=== PATIENT | female | born 1990 | race African-American/Black ===

== ENCOUNTER 2023-07-14 12:36 | Emergency (ER) | payer MEDICAID ==
[~2023-07-14] VITALS: Ht 172.7 cm; Wt 94.0 kg
[2023-07-14 13:13] LABS: Basophils # (auto) 0 10 ^3/uL (0-0.2); Basophils % (auto) 1.1 % (0.0-2.0); Eosinophils # (auto) 0.1 10 ^3/uL (0-0.8); Eosinophils % (auto) 1.7 % (0.0-7.0); Hemoglobin 12.7 g/dL (12.2-16.2); Lymphocytes # (auto) 1.9 10 ^3/uL (0.4-5.4); Lymphocytes % (auto) 49.4 % (10.0-50.0); Mean Corpuscular Hemoglobin 27.7 pg (28.0-32.0); Mean Corpuscular Hgb Conc. 32.5 g/dL (32.0-36.0); Mean Corpuscular Volume 85.3 fL (80.0-100.0); Monocytes # (auto) 0.2 10 ^3/uL (0-1.3); Monocytes % (auto) 5.6 % (0.0-12.0); Neutrophils # (auto) 1.6 10 ^3/uL (1.6-8.6); Neutrophils % (auto) 42.2 % (37.0-80.0); Nucleated Red Blood Cells % 0.1 %; Red Blood Cells 4.58 10^6/uL (4.0-5.20); Red Cell Distribution Width 13.5 % (11.8-14.3); White Blood Cell 3.8 10^3/uL (4.4-10.8)
[2023-07-14 13:31] LABS: INR 1.02 (0.9-1.15); Partial Thromboplastin Time 28.8 SEC (24.5-34.5); Prothrombin Time 10.7 sec (9.3-11.8)
[2023-07-14] MEDS ORDERED: NAPR-1334 PO (13:34)
[2023-07-14] MEDS ORDERED: AML5T PO (13:34)
[2023-07-14 13:41] LABS: Alanine Aminotransferase 12 U/L (7-40); Albumin 4.2 g/dL (3.2-4.8); Alkaline Phosphatase 82 U/L (46-116); Anion Gap 6 (5-15); Aspartate Aminotransferase < 8 U/L (13-40); BUN/Creatinine Ratio 11.4 (10.0-20.0); Blood Urea Nitrogen 10 mg/dL (9-23); Calcium 8.9 mg/dL (8.7-10.4); Carbon Dioxide 26 mmol/L (20-30); Chloride 101 mmol/L (98-107); Glucose 398 mg/dL (74-106); Sodium 133 mmol/L (136-145)
[2023-07-14 13:42] LABS: Bilirubin, Total 0.5 mg/dL (0.2-1.0)
[2023-07-14] MEDS ORDERED: GLYB2.5T9 PO (16:19)
[2023-07-14] MEDS ORDERED: BLOO1KIT60 XX (16:22)
[2023-07-14 16:30] VITALS: BP 120/76; PULSE 74; RESP 18; TEMP 98.4; O2SAT 97
[2023-07-14] MEDS ORDERED: SODIUM CHLORIDE 0.9% 1,000 ML IV ONE (16:45)
== END 2023-07-14 17:15 | disposition home or self-care (01) ==
LOC: ER 12:36
DX: R07.9 Chest pain, unspecified (principal); R10.2 Pelvic and perineal pain; I10 Essential (primary) hypertension; E11.65 Type 2 diabetes mellitus with hyperglycemia; Z91.041 Radiographic dye allergy status
CPT/HCPCS: 36415; 80053; 82962; 84484; 84702; 85025; 85379; 85610; 85730; 93005; 99284; J7030

== ENCOUNTER 2024-06-10 01:37 | Emergency (ER) | payer OTHER, MEDICAID ==
[~2024-06-10] VITALS: Ht 175.3 cm; Wt 86.0 kg
[~2024-06-10 01:37] MED LIST: AML5T PO; BLOO1KIT60 XX; GLYB2.5T9 PO; NAPR-1335 PO
--- NOTE | 2024-06-10 02:02 | ED.PDOC ---
History of present illness HPI Comments 33-year-old female presents with a chief complaint of lightheadedness and hyperglycemia x onset today. Patient states that she has been compliant with her diabetes medications and checked her blood sugar which read HIGH. Patient endorses that she has been taking Prednisone since 05/24/2024 when she was diagn osed with Influenza A. Patient denies any other symptoms at this time. Chief Complaint: Hyperglycemia Time Seen by MD: 01:54 History of present illness: Medications, Allergies Allergies: Coded Allergies: Iodine (Verified Allergy, Unknown, 07/14/23) Home Meds Active Scripts Blood Glucose Monitoring Suppl (D-Care Glucometer Kit/Glu W/Device) 1 Kit Kit, KIT XX BID, #1 Prov:JONNA DUTTA MD 07/14/23 Glyburide (Micronase) 2.5 Mg Tb, 1 TAB PO BID for 90 Days, #180 TAB 1 Refill Prov:JONNA DUTTA MD 07/14/23 Naproxen Sodium (Naproxen) 220 Mg Tab, 220 MG PO BID for 7 Days, #14 TAB Prov:JONNA DUTTA MD 07/14/23 Amlodipine Besylate (NORVASC TABLET) 5 Mg Tb, 0.5 TAB PO DAILY for 60 Days, #30 TAB 5 Refills Prov:JONNA DUTTA MD 07/14/23 Information Source: Patient Mode of Arrival: Ambulatory Timing: Hours Duration: Since onset Prehospital treatment: None Rosine: Shaky Symptoms: Shaky History of: Diabetes Associated signs and symptoms: Other (LIGHTHEADEDNESS) Past Medical History PAST MEDICAL HISTORY: DM Surgical History: Denies all surgeries 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 Family History Family History: Unknown Social History Smoker: Non-Smoker Alcohol: Denies ETOH Use Drugs: Denies Drug Use Lives In: Home Constitutional: denies: chills, diaphoresis, fatigue, fever, malaise, sweats, weakness, others EENTM: denies: blurred vision, double vision, ear bleeding, ear discharge, ear drainage, ear pain, ear ringing, eye pain, eye redness, hearing loss, mouth pain, mouth swelling, nasal discharge, nose bleeding, nose congestion, nose pain, photophobia, tearing, throat pain, throat swelling, voice changes, others Respiratory: denies: cough, hemoptysis, orthopnea, SOB at rest, shortness of breath, SOB with excertion, stridor, wheezing, others Cardiovascular: reports: lightheadedness; denies: chest pain, dizzy spells, diaphoresis, Dyspnea on exertion, edema, irregular heart beat, left arm pain, palpitations, PND, syncope, others Gastrointestinal: denies: abdomen distended, abdominal pain, blood streaked bowels, constipated, diarrhea, dysphagia, difficulty swallowing, hematemesis, melena, nausea, poor appetite, poor fluid intake, rectal bleeding, rectal pain, vomiting, others Genitourinary: denies: abnormal vagina bleeding, burning, dyspareunia, dysuria, flank pain, frequency, hematuria, incontinence, pain, , vagina discharge, urgency, others Neurological: denies: dizziness, fainting, headache, left sided numbness, left sided weakness, numbness, paresthesia, pre-existing deficit, right sided numbness, right sided weakness, seizure, speech problems, tingling, tremors, weakness, others Musculoskeletal: denies: back pain, gout, joint pain, joint swelling, muscle pain, muscle stiffness, neck pain, others Integumetry: denies: bruises, change in color, change in hair/nails, dryness, laceration, lesions, lumps, rash, wounds, others Allergic/Immunocompromised: denies: Difficulty Healing, Frequent Infections, Hives, Itching, others Hematologic/Lymphatic: denies: anemia, blood clots, easy bleeding, easy bruising, swollen glands, others Endocrine: reports: others (HYPERGLYCEMIA); denies: excessive hunger, excessive sweating, excessive thirst, excessive urination, flushing, intolerance to cold, intolerance to heat, unexplained weight gain, unexplained weight loss Psychiatric: denies: anxiety, bipolar disorder, depression, hopeless, panic disorder, schizophrenia, sleepless, suicidal, others All Other Systems: Reviewed and Negative Physical Exam General Appearance: Mild Distress, Normal HEENT: Normal ENT Inspection, Pharynx Normal, TMs Normal Neck: Full Range of Motion, Non-Tender, Normal, Normal Inspection Respiratory: Chest Non-Tender, Lungs Clear, No Accessory Muscle Use, No Respiratory Distress, Normal Breath Sounds Cardiovascular: No Edema, No JVD, No Murmur, No Gallop, Normal Peripheral Pulses, Regular Rate/Rhythm Breast Exam: Deferred Gastrointestinal: No Organomegaly, Non Tender, No Pulsatile Mass, Normal Bowel Sounds, Soft Genitalia: Deferred Pelvic: Deferred Rectal: Deferred Extremities: No calf tenderness, Normal capillary refill, Normal inspection, Normal range of motion, Non-tender, No pedal edema Musculoskeletal : Apperance: Normal Neurologic: Alert, logging specialist II-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 Was a procedure done?: No Differential Diagnosis (DM) Differential Diagnosis: Dehydration, Diabetic Coma, DKA, Electrolyte Abnormality, Hyperglycemia, Hyperosmolar State, Other X-Ray, Labs, Meds, VS Vital Signs Date Time Temp Pulse Resp B/P (MAP) Pulse Ox O2 Delivery O2 Flow Rate FiO2 06/10/24 06:11 90 16 99 Room Air* 0 21 06/10/24 06:09 97.8 90 16 134/93 (107) 99 97.8 06/10/24 01:48 97.8 108 16 122/90 (101) 97 Lab Test 06/10/24 05:32 06/10/24 04:26 06/10/24 03:40 06/10/24 01:47 Range/Units POC Glucose 460 *H 483 *H 445 *H 70-106 mg/dl Blood Gas Specimen Type Venous Blood Gas Sample Site Vbg - n/a Blood Gas Patient Temperature 37.0 Arterial Blood Date Drawn [id number] Dru Test N/a Venous Blood pH 7.397 7.320-7.430 Venous Blood pCO2 at Patient Temp 40.9 38.0-54.0 mmHg Venous Blood pO2 at Patient Temp < 36.5 23.0-48.0 mmHg Venous Blood HCO3 24.6 22.0-29.0 mmol/L Venous Bld O2 Saturation (Measured) 43.8 L 60.0-85.0 % Venous Blood Base Excess -0.2 -2.0-3.0 mmol/L Venous Blood Total Hemoglobin 13.5 12.0-16.0 g/dL Venous Blood Oxyhemoglobin 43.1 0.0-79.0 % Venous Blood Carboxyhemoglobin 1.1 0.5-1.5 % Venous Blood Methemoglobin 0.4 0.0-1.5 % Blood Gas Modality Room air FiO2 % 21.0 Blood Gas Critical Value Read Back Yes Blood Gas Notified Whom steven Randolph Blood Gas Notified Time [id number] Blood Gas Notified By ramesh Naylor pickens Test 06/10/24 01:45 Range/Units POC Glucose 484 *H 70-106 mg/dl Current Medications Medications (Trade) Dose Ordered Sig/Radha Route Start Time Stop Time Status Last Admin Sodium Chloride 1,000 ml @ 1,000 mls/hr Q1H ONCE IV 06/10/24 02:00 06/10/24 02:59 DC 06/10/24 04:21 Insulin Human Regular (InsuLIN R) 6 units ONCE ONCE IV 06/10/24 02:00 06/10/24 02:02 DC 06/10/24 04:28 Time of 1ST Reevaluation: 02:24 Reevaluation 1ST: Unchanged Time of 2ND Reevaluation: 03:30 Reevaluation 2ND: Improved Patient Education/Counseling: Diagnosis, Treatment, Prognosis Family Education/Counseling: No Family Present Departure 1 Departure Time of Disposition: 04:00 Impression: Primary Impression: Hyperglycemia due to diabetes mellitus Additional Impression: Hypertension Disposition: 01 HOME / SELF CARE / HOMELESS Condition: Stable Discharged With: Self Critical Care Note Critical Care Time?: No Stability Stability form required: No I personally scribed for CARMEN DENNIS MD ([email or web address]) on 06/10/24 at 02:02. Electronically submitted by Bryant Nelson ([email or web address]). CARMEN DENNIS MD Jun 10, 2024 02:02
[2024-06-10] MEDS: SODIUM CHLORIDE 0.9% 1,000 ML IV ONE (04:21)
[2024-06-10] MEDS: InsuLIN REG 1unit/0.01ml Soln (100units/ml) IV ONE (04:28)
[2024-06-10 06:09] VITALS: BP 134/93; TEMP 97.8
[2024-06-10 06:11] VITALS: PULSE 90; RESP 16; O2SAT 99
== END 2024-06-10 06:09 | disposition home or self-care (01) ==
LOC: ER 01:37
DX: E11.65 Type 2 diabetes mellitus with hyperglycemia (principal); I10 Essential (primary) hypertension; Z79.84 Long term (current) use of oral hypoglycemic drugs; Z79.899 Other long term (current) drug therapy; Z91.041 Radiographic dye allergy status; Z88.8 Allergy status to other drugs, medicaments and biological substances
CPT/HCPCS: 36600; 82805; 82962; 96361; 96374; 99283; J1815; J7030

== ENCOUNTER 2024-06-15 22:01 | Emergency (ER) | payer BC, OTHER, MEDICAID ==
[~2024-06-15] VITALS: Ht 175.3 cm; Wt 89.0 kg
[2024-06-15 22:17] VITALS: BP 148/100; PULSE 85; RESP 17; TEMP 97.9; O2SAT 99
--- NOTE | 2024-06-15 23:00 | ED.PDOC ---
Foreign Body HPI Comments THIS IS A 34-YEAR-OLD FEMALE PATIENT PRESENTS TO THE ED WITH POSSIBLE FOREIGN BODY STUCK IN HER THROAT. PATIENT STATES ABOUT AN HOUR PRIOR TO ARRIVAL SHE WAS EATING A CORN DOG FELT A PIECE GET STUCK IN HER THROAT. IT IS PRESSURE IN HER THROAT DENIES DIFFICULTY BREATHING, SHORTNESS OF BREATH, VOMITING. FULL SENTENCES ABLE TO SWALLOW Chief Complaint: Foreign Body Time Seen by MD: 22:07 History of Present Illness: Nurses Notes, Medications, Allergies Allergies: Coded Allergies: Iodine (Verified Allergy, Unknown, 07/14/23) Home Meds Active Scripts Blood Glucose Monitoring Suppl (D-Care Glucometer Kit/Glu W/Device) 1 Kit Kit, KIT XX BID, #1 Prov:JONNA DUTTA MD 07/14/23 Glyburide (Micronase) 2.5 Mg Tb, 1 TAB PO BID for 90 Days, #180 TAB 1 Refill Prov:JONNA DUTTA MD 07/14/23 Naproxen Sodium (Naproxen) 220 Mg Tab, 220 MG PO BID for 7 Days, #14 TAB Prov:JONNA DUTTA MD 07/14/23 Amlodipine Besylate (NORVASC TABLET) 5 Mg Tb, 0.5 TAB PO DAILY for 60 Days, #30 TAB 5 Refills Prov:JONNA DUTTA MD 07/14/23 Information Source: Patient Mode of Arrival: Ambulatory Past Medical History PAST MEDICAL HISTORY: DM Surgical History: Denies all surgeries [employer] History: Other Family History Family History: Unknown Social History Smoker: Non-Smoker Alcohol: Denies ETOH Use Drugs: Denies Drug Use Lives In: Home Constitutional: denies: chills, diaphoresis, fatigue, fever, malaise, sweats, weakness, others EENTM: denies: blurred vision, double vision, ear bleeding, ear discharge, ear drainage, ear pain, ear ringing, eye pain, eye redness, hearing loss, mouth pain, mouth swelling, nasal discharge, nose bleeding, nose congestion, nose pain, photophobia, tearing, throat pain, throat swelling, voice changes, others Respiratory: denies: cough, hemoptysis, orthopnea, SOB at rest, shortness of breath, SOB with excertion, stridor, wheezing, others Cardiovascular: denies: chest pain, dizzy spells, diaphoresis, Dyspnea on exertion, edema, irregular heart beat, left arm pain, lightheadedness, palpitations, PND, syncope, others Gastrointestinal: reports: others (POSSIBLE FOREIGN BODY IN THROAT); denies: abdomen distended, abdominal pain, blood streaked bowels, constipated, diarrhea, dysphagia, difficulty swallowing, hematemesis, melena, nausea, poor appetite, poor fluid intake, rectal bleeding, rectal pain, vomiting Genitourinary: denies: abnormal vagina bleeding, burning, dyspareunia, dysuria, flank pain, frequency, hematuria, incontinence, pain, , vagina discharge, urgency, others Neurological: denies: dizziness, fainting, headache, left sided numbness, left sided weakness, numbness, paresthesia, pre-existing deficit, right sided numbness, right sided weakness, seizure, speech problems, tingling, tremors, weakness, others Musculoskeletal: denies: back pain, gout, joint pain, joint swelling, muscle pain, muscle stiffness, neck pain, others Integumetry: denies: bruises, change in color, change in hair/nails, dryness, laceration, lesions, lumps, rash, wounds, others Allergic/Immunocompromised: denies: Difficulty Healing, Frequent Infections, Hives, Itching, others Endocrine: denies: excessive hunger, excessive sweating, excessive thirst, excessive urination, flushing, intolerance to cold, intolerance to heat, unexplained weight gain, unexplained weight loss, others Psychiatric: denies: anxiety, bipolar disorder, depression, hopeless, panic disorder, schizophrenia, sleepless, suicidal, others Physical Exam General Appearance: No Apparent Distress, Normal HEENT: Normal ENT Inspection, Pharynx Normal, TMs Normal Neck: Full Range of Motion, Non-Tender Respiratory: Lungs Clear, No Respiratory Distress, Normal Breath Sounds Cardiovascular: No Edema, No JVD, No Murmur, No Gallop, Normal Peripheral Pulses, Regular Rate/Rhythm Breast Exam: Deferred Gastrointestinal: No Organomegaly, Non Tender, No Pulsatile Mass, Normal Bowel Sounds, Soft Genitalia: Deferred Pelvic: Deferred Rectal: Deferred Extremities: Normal capillary refill, Normal inspection, Normal range of motion, Non-tender, No pedal edema Musculoskeletal : Apperance: Normal 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 Was a procedure done?: No FB Differential Dx Differential Diagnosis: Airway Obstruction, Esophageal Obstruction, Foreign Body X-Ray, Labs, Meds, VS Vital Signs Date Time Temp Pulse Resp B/P (MAP) Pulse Ox O2 Delivery O2 Flow Rate FiO2 06/15/24 22:17 Room Air 06/15/24 22:17 97.9 85 17 148/100 (116) 99 97.9 06/15/24 22:17 97.9 85 17 148/100 (116) 99 X-Ray, Labs, Meds, VS Comment TISSUE X-RAY OF THE NECK SHOWS NO NOTED FOREIGN BODY. ADVISED PATIENT SHE WILL LIKELY FEEL SORE FOR SOME TIME FEELING OF FOREIGN BODY HOWEVER NO NOTED FOREIGN BODY FOUND AN X-RAY ADVISED TO CHEW HER FOOD BETTER. ADVISED TO CONSIDER SOFT FOOD AND LIQUID DIET FOR THE NEXT COUPLE OF DAYS. ADVISED TO INCREASE P.O. FLUIDS WITH ELECTROLYTES. FOLLOW UP WITH HER PCP IN 2-3 DAYS NECESSARY. RETURN PRECAUTIONS GIVEN PATIENT INDICATED UNDERSTANDING. Time of 1ST Reevaluation: 23:30 Reevaluation 1ST: Improved Patient Education/Counseling: Diagnosis, Treatment, Prognosis, Need For Follow Up Family Education/Counseling: No Family Present Departure 1 Departure Time of Disposition: 23:32 Impression: Primary Impression: Foreign body in throat Qualified Codes: T17.208A - Unspecified foreign body in pharynx causing other injury, initial encounter Disposition: HOME / SELF CARE / HOMELESS Condition: Stable Discharged With: Self Critical Care Note Critical Care Time?: No Stability Stability form required: JOSE ROBERTO Rust Jun 15, 2024 23:00
--- NOTE | 2024-06-15 23:28 | DVH ---
Procedure: XY NECK FOR SOFT TISSUE Exam Date: 06/15/2024 11:05 PM History: R/O STUCK CORN DOG IN THROAT Comparison Study: None available at time of dictation. Soft Tissue Neck: AP and lateral views. Findings: No evidence of soft tissue swelling or radiopaque foreign body. Epiglottis appears normal. Impression: Negative soft tissue neck.
== END 2024-06-15 23:35 | disposition home or self-care (01) ==
LOC: ER 22:01
DX: T17.228A Food in pharynx causing other injury, initial encounter (principal); E11.9 Type 2 diabetes mellitus without complications; Z79.899 Other long term (current) drug therapy; Z79.84 Long term (current) use of oral hypoglycemic drugs; Z88.8 Allergy status to other drugs, medicaments and biological substances; Z91.041 Radiographic dye allergy status; W44.F3XA Food entering into or through a natural orifice, initial encounter; Y93.89 Activity, other specified; Y92.89 Other specified places as the place of occurrence of the external cause; Y99.8 Other external cause status
CPT/HCPCS: 70360

== ENCOUNTER 2024-07-22 21:34 | Emergency (ER) | payer BC, MEDICAID ==
[~2024-07-22] VITALS: Ht 172.7 cm; Wt 98.6 kg
[2024-07-22 21:40] VITALS: BP 165/105; PULSE 97; RESP 16; O2SAT 97
[2024-07-23 01:32] LABS: Urine Bacteria FEW /hpf (None Seen); Urine Blood 2+ /uL (Negative); Urine Clarity Turbid (Clear); Urine Color Light-Yellow (Yellow); Urine Protein, UAD 2+ (Negative); Urine Specific Gravity 1.017 (1.001-1.035); Urine Squamous Epithelial Cell FEW /hpf (<5); Urine Urobilinogen Normal (Negative); Urine WBC 154 /HPF (0-5); Urine pH 6.5 (5.0-9.0)
== END 2024-07-23 01:16 | disposition left against medical advice (07) ==
LOC: ER 21:34
DX: R10.30 Lower abdominal pain, unspecified (principal); R11.2 Nausea with vomiting, unspecified; R19.7 Diarrhea, unspecified; Z53.21 Procedure and treatment not carried out due to patient leaving prior to being seen by health care provider
CPT/HCPCS: 81001

== ENCOUNTER 2024-10-16 21:20 | Inpatient (IN) | payer BC, MEDICAID ==
[~2024-10-16] VITALS: Ht 172.7 cm; Wt 92.7 kg
[~2024-10-16 21:20] MED LIST changes: +CEPH500C PO; +DICY10CA PO; +LOPE7.5C PO; +ZOFR4T PO
[2024-10-16 21:25] VITALS: BP 143/97; RESP 18; TEMP 98.8; O2SAT 100
--- NOTE | 2024-10-16 21:43 | ED.PDOC ---
HPI Comments 34-year-old female who came to ER for chest pains. Patient states about 5:00 p.m. today, she was at work when she developed intermittent episodes of sharp left-sided chest pains, nonradiating, 7/10 intensity, associated with shortness of breath. Patient admits that she has been stressed and anxious recently, which might them attributed to her chest pains. Patient also coming for swelling of the left ankle for the past 2 days. Denies any recent trauma. Patient does have history of diabetes, blood sugar on scene was 404 Chief Complaint: Chest Pain Time Seen by MD: 21:41 Reviewed Notes: Nurses Notes Allergies: Coded Allergies: Iodine (Verified Allergy, Unknown, 07/14/23) Home Meds Active Scripts Lisinopril (Lisinopril) 20 Mg Tab, 1 TAB PO DAILY, #90 TAB 1 Refill Prov:EMILIE BARRON MD 10/17/24 Dicyclomine Hcl (BENTYL CAPSULE) 10 Mg Cp, 2 CAP PO Q6HP PRN, #60 CAP 11 Refills prn abdominal pain Prov:JOSE EDUARDO MONDRAGON MD 07/24/24 Loperamide HCl (Imodium A-D) 2 Mg Cap, 2 MG PO Q6HP PRN, #20 CAP prn diarrhea Prov:JOSE EDUARDO MONDRAGON MD 07/24/24 Ondansetron Odt 4MG Tab (ZOFRAN PO) 4 Mg Tb, 4 MG PO TID PRN, #30 TAB prn n/v ODT TAB-DISSOLVE IN MOUTH, THEN SWALLOW Prov:JOSE EDUARDO MONDRAGON MD 07/24/24 Cephalexin Monohydrate (Cephalexin) 500 Mg Cap, 1 CAP PO QID for 10 Days, #40 CAP Prov:JOSE EDUARDO MONDRAGON MD 07/24/24 Blood Glucose Monitoring Suppl (D-Care Glucometer Kit/Glu W/Device) 1 Kit Kit, KIT XX BID, #1 Prov:JONNA DUTTA MD 07/14/23 Glyburide (Micronase) 2.5 Mg Tb, 1 TAB PO BID for 90 Days, #180 TAB 1 Refill Prov:JONNA DUTTA MD 07/14/23 Naproxen Sodium (Naproxen) 220 Mg Tab, 220 MG PO BID for 7 Days, #14 TAB Prov:JONNA DUTTA MD 07/14/23 Amlodipine Besylate (NORVASC TABLET) 5 Mg Tb, 0.5 TAB PO DAILY for 60 Days, #30 TAB 5 Refills Prov:JONNA DUTTA MD 07/14/23 Information Source: Patient Mode of Arrival: Ambulatory Severity: Moderate Timing: Hours Duration: Intermittent Location: Chest (L) Radiation: No Radiation Quality: Sharp Onset: With Light Exertion Cardiac Risk Factors: Diabetes History of: Similar pain in past Associated Signs and Symptoms: SOB, Other (Anxiety) Review of Systems REVIEW OF SYSTEMS: No fever, no chills, or fatigue HEENT: No sore throat, no earache, no congestion, no neck pain. Cardiac: (+) chest pain. No palpitations. Lungs: No shortness of breath, no cough. GI: No nausea, no vomiting, no diarrhea, no constipation, no abdominal pain : No dysuria, frequency, or urgency. No hematuria. Musculoskeletal: No joint pain , no joint swelling, no extremity edema. Skin: No rash, no itching. Neuro: No headache, no dizziness, no weakness Vital Signs Vital Signs Date Time Temp Pulse Resp B/P (MAP) Pulse Ox O2 Delivery O2 Flow Rate FiO2 10/16/24 21:43 95 10/16/24 21:25 98.8 18 143/97 (112) 100 98.8 Physical Exam General: Awake, alert and oriented. No acute distress. Skin: Skin in warm, dry and intact. Appropriate color for ethnicity. Nailbeds pink with no cyanosis. HEENT: The head is normocephalic and atraumatic. Conjunctivae are clear without exudates or hemorrhage. Sclera is non-icteric. EOM are intact. No signs of nystagmus. Eyelids are normal in appearance without swelling or lesions. Oral mucosa is pink and moist Neck: The neck is supple with normal range of motion. No JVD. Cardiac: Heart rate and rhythm are normal. No murmurs, gallops, or rubs are auscultated. Respiratory: No signs of respiratory distress. Lung sounds are clear in all lobes bilaterally without rales, rhonchi, or wheezes. Abdominal: Abdomen is soft, non-tender without distention. Bowel sounds are present and normoactive in all four quadrants. Extremities: Left ankle edema with tenderness. Neurological: The patient is awake, alert and oriented to person, place, and time with normal speech. Speech is clear. There is no facial asymmetry. Psychiatric: Appropriate mood and affect. Good judgement and insight. No visual or auditory hallucinations. Past Medical History PAST MEDICAL HISTORY: DM Surgical History: Denies all surgeries PHYSICAL THERAPY ASSISTANT INSTRUCTOR History: Denies all PHYSICAL THERAPY ASSISTANT INSTRUCTOR Hx, Other (Preeclampsia) Family History Family History: Reviewed,noncontributory to illness Social History Smoker: Non-Smoker Alcohol: Denies ETOH Use Drugs: Denies Drug Use Lives In: Home EKG EKG : Pulse Rate (adult): 95 Cardiac Rhythm: NSR Hypertrophy: LAE Comments No STEMI Was a procedure done? Was a procedure done?: No CP Differential Dx Differential Diagnosis: Angina, Anxiety / Panic Attack Differential Diagnosis: Angina, Chest Wall Pain, Costochondritis, Esophageal reflux/spasm, Gastritis, Myocardial Infarction, Other (DKA) X-Ray, Labs, Meds, VS Vital Signs Date Time Temp Pulse Resp B/P (MAP) Pulse Ox O2 Delivery O2 Flow Rate FiO2 10/16/24 21:43 95 10/16/24 21:25 98.8 95 18 143/97 (112) 100 98.8 Lab Test 10/16/24 22:09 10/16/24 21:39 10/16/24 21:29 10/16/24 21:26 Range/Units Troponin I High Sensitivity 3 L 3 L </=34 ng/L White Blood Count 4.4 4.4-10.8 10^3/uL Red Blood Count 4.18 4.0-5.20 10^6/uL Hemoglobin 11.7 L 12.2-16.2 g/dL Hematocrit 34.7 L 36.0-46.0 % Mean Corpuscular Volume 83.0 80.0-100.0 fL Mean Corpuscular Hemoglobin 28.0 28.0-32.0 pg Mean Corpuscular Hemoglobin Concent 33.7 32.0-36.0 g/dL Red Cell Distribution Width 13.4 11.8-14.3 % Platelet Count 274 140-450 10^3/uL Mean Platelet Volume 8.0 6.9-10.8 fL Neutrophils (%) (Auto) 51.9 37.0-80.0 % Lymphocytes (%) (Auto) 41.4 10.0-50.0 % Monocytes (%) (Auto) 5.2 0.0-12.0 % Eosinophils (%) (Auto) 0.7 0.0-7.0 % Basophils (%) (Auto) 0.8 0.0-2.0 % Neutrophils # (Auto) 2.3 1.6-8.6 10 ^3/uL Lymphocytes # (Auto) 1.8 0.4-5.4 10 ^3/uL Monocytes # (Auto) 0.2 0-1.3 10 ^3/uL Eosinophils # (Auto) 0 0-0.8 10 ^3/uL Basophils # (Auto) 0 0-0.2 10 ^3/uL Nucleated Red Blood Cells 0.1 % D-Dimer, Quantitative 0.44 0.0-0.49 mg/L FEU Sodium Level 137 136-145 mmol/L Potassium Level 3.9 3.5-5.1 mmol/L Chloride Level 103 98-107 mmol/L Carbon Dioxide Level 28 20-31 mmol/L Anion Gap 6 5-15 Blood Urea Nitrogen 10 9-23 mg/dL Creatinine 0.99 0.550-1.02 mg/dL Glomerular Filtration Rate Calc 76 >90 mL/min BUN/Creatinine Ratio 10.1 10.0-20.0 Serum Glucose 448 *H 74-106 mg/dL POC Glucose 404 *H 70-106 mg/dl Lactic Acid Level 1.2 0.4-2.0 mmol/L Calcium Level 9.2 8.7-10.4 mg/dL Magnesium Level 1.4 L 1.6-2.6 mg/dL Total Bilirubin 0.4 0.2-1.0 mg/dL Aspartate Amino Transferase (AST) 9 L 13-40 U/L Alanine Aminotransferase (ALT) 11 7-40 U/L Alkaline Phosphatase 70 46-116 U/L B-Type Natriuretic Peptide 23.57 0-100 pg/mL Total Protein 6.7 5.7-8.2 g/dL Albumin 3.9 3.2-4.8 g/dL Lipase 28 12-53 U/L Beta-Hydroxybutyric Acid 0.062 < 0.4 mmol/L Thyroid Stimulating Hormone (TSH) 2.32 0.55-4.78 uIU/mL Urine Opiates Screen Neg NEGATIVE Urine Fentanyl Screen Neg NEGATIVE Urine Barbiturates Screen Neg NEGATIVE Urine Phencyclidine Screen Neg NEGATIVE Urine Amphetamines Screen Neg NEGATIVE Urine Benzodiazepines Screen Neg NEGATIVE Urine Cocaine Screen Neg NEGATIVE Urine Cannabinoids Screen Pos NEGATIVE Urine Color Light-yellow Yellow Urine Clarity Clear Clear Urine pH 6.5 5.0-9.0 Urine Specific Early 1.034 1.001-1.035 Urine Protein 2+ H Negative Urine Ketones Negative Negative Urine Blood Trace H Negative /uL Urine Nitrite Negative Negative Urine Bilirubin Negative Negative Urine Urobilinogen Normal Negative mg/dL Urine Leukocyte Esterase Negative Negative /uL Urine RBC 2 0 - 4 /hpf Urine Microscopic WBC 4 0-5 /HPF Urine Squamous Epithelial Cells None seen <5 /hpf Urine Bacteria None seen None Seen /hpf Urine Glucose 4+ H Normal mg/dL CLINICAL HISTORY: Lower extremity pain and swelling TECHNIQUE: Color and duplex doppler imaging of the left lower extremity veins was performed. Vessel compression if possible was also performed. WID: COMPARISON: None FINDINGS: Left common femoral vein: Normal compressibility and flow. Left femoral vein: Normal compressibility and flow. Left popliteal vein: Normal compressibility and flow. Proximal calf veins are normally compressible. IMPRESSION: NO SONOGRAPHIC EVIDENCE FOR DEEP VENOUS THROMBOSIS IN THE LEFT LOWER EXTREMITY VEINS. CHEST RADIOGRAPH Indication: cp Technique: Single frontal view of the chest was obtained Comparison: None FINDINGS: Lines and Tubes: None Lungs: No focal consolidation. Pleura: No effusion. No pneumothorax. Cardiomediastinal contours: Unremarkable Bones: No acute osseous abnormality. IMPRESSION: 1. No acute cardiopulmonary disease. Images Reviewed?: Images reviewed and evaluated by me (Independent interpretation of chest x-ray: No acute disease) Time of 1ST Reevaluation: 21:34 Reevaluation 1ST: Unchanged Patient Education/Counseling: Diagnosis, Treatment, Other (Need for admission) Family Education/Counseling: No Family Present Departure 1 Departure Time of Disposition: 23:15 Impression: Primary Impression: Hyperglycemia due to diabetes mellitus Additional Impression: Chest pain Disposition: 01 HOME / SELF CARE / HOMELESS Condition: Serious Comments IV fluids and insulin initiated for hyperglycemia. Patient admitted to hospitalist service for further treatment, evaluation and monitoring. Extensive evaluation was performed in attempt to identify or rule out: (See differential diagnosis section) The following tests were ordered, and results were reviewed by me and discussed with patient: (See diagnostic results section) The following test were independently interpreted by me: EKG, chest x-ray I reviewed and agreed with the following test results read by other providers: Chest x-ray I reviewed the following notes from the pt's past medical encounters: N/A Additional information was gathered from interviewing the following independent historians: N/A Discussion of management or test interpretation with external physician/other qualified health restorative care technician: N/A Addressed acute or chronic illness that poses a threat to life or bodily function: Hyperglycemia, chest pain Decision regarding hospitalization or escalation of hospital level of care: Risk and benefits of admission for further treatment of patient's condition was considered. Due to patient's current clinical condition, high risk of decline and poor outcome if discharged and need for further inpatient management and monitoring, patient will be admitted to the hospital. Discussed with patient. Drug therapy requiring intensive monitoring for toxicity: N/A Parenteral controlled substances: N/A Decision regarding elective major surgery with identified patient or procedure risk factors: N/A Decision regarding emergency major surgery: N/A Decision not to resuscitate or to de-escalate care because of poor prognosis: N/A Diagnosis or treatment significantly limited by social determinants of health: N/A Critical Care Note Critical Care Time?: No Stability Stability form required: No Heart Score Heart Score: Heart Score Response (Comments) Value History Slightly Suspicious 0 EKG Normal 0 Age <45 0 Risk Factors 1 or 2 risk factors 1 Troponin Normal limit 0 Total 1 I personally scribed for GENNY HAILE MD ([email or web address]) on 10/16/24 at 21:43. Electronically submitted by Randy Reeves ([employer]). I personally scribed for GENNY HAILE MD ([email or web address]) on 10/17/24 at 00:19. Electronically submitted by Randy Reeves ([email or web address]). I personally scribed for GENNY HAILE MD ([email or web address]) on 10/17/24 at 00:20. Electronically submitted by Randy Reeves ([employer]). GENNY HAILE MD October 16, 2024 21:43
[2024-10-16] MEDS ORDERED: SODIUM CHLORIDE 0.9% 1,000 ML IV ONE ×3 (21:45→23:45)
[2024-10-16] MEDS ORDERED: ASPirin 81 mg TAB PO ONE (21:45)
[2024-10-16 21:52] LABS: Basophils # (auto) 0 10 ^3/uL (0-0.2); Basophils % (auto) 0.8 % (0.0-2.0); Eosinophils # (auto) 0 10 ^3/uL (0-0.8); Eosinophils % (auto) 0.7 % (0.0-7.0); Hematocrit 34.7 % (36.0-46.0); Hemoglobin 11.7 g/dL (12.2-16.2); Lymphocytes # (auto) 1.8 10 ^3/uL (0.4-5.4); Lymphocytes % (auto) 41.4 % (10.0-50.0); Mean Corpuscular Hgb Conc. 33.7 g/dL (32.0-36.0); Monocytes # (auto) 0.2 10 ^3/uL (0-1.3); Monocytes % (auto) 5.2 % (0.0-12.0); Neutrophils # (auto) 2.3 10 ^3/uL (1.6-8.6); Neutrophils % (auto) 51.9 % (37.0-80.0); Nucleated Red Blood Cells % 0.1 %; Platelet Count (auto) 274 10^3/uL (140-450); Red Blood Cells 4.18 10^6/uL (4.0-5.20); Red Cell Distribution Width 13.4 % (11.8-14.3); White Blood Cell 4.4 10^3/uL (4.4-10.8)
[2024-10-16 22:14] LABS: Alanine Aminotransferase 11 U/L (7-40); Albumin 3.9 g/dL (3.2-4.8); Alkaline Phosphatase 70 U/L (46-116); Anion Gap 6 (5-15); BUN/Creatinine Ratio 10.1 (10.0-20.0); Bilirubin, Total 0.4 mg/dL (0.2-1.0); Blood Urea Nitrogen 10 mg/dL (9-23); Calcium 9.2 mg/dL (8.7-10.4); Carbon Dioxide 28 mmol/L (20-31); Chloride 103 mmol/L (98-107); Potassium 3.9 mmol/L (3.5-5.1); Sodium 137 mmol/L (136-145); Total Protein 6.7 g/dL (5.7-8.2)
[2024-10-16 22:16] LABS: Aspartate Aminotransferase 9 U/L (13-40); Magnesium 1.4 mg/dL (1.6-2.6)
[2024-10-16 22:18] LABS: Glucose 448 mg/dL (74-106)
--- NOTE | 2024-10-16 22:57 | DVH ---
CHEST RADIOGRAPH Indication: cp Technique: Single frontal view of the chest was obtained Comparison: None FINDINGS: Lines and Tubes: None Lungs: No focal consolidation. Pleura: No effusion. No pneumothorax. Cardiomediastinal contours: Unremarkable Bones: No acute osseous abnormality. IMPRESSION: 1. No acute cardiopulmonary disease. HS:Y
--- NOTE | 2024-10-16 22:59 | DVH ---
CLINICAL INDICATION: L ankle pain and swelling TECHNIQUE: 2 radiographic views of the left ankle were obtained. Comparison: None FINDINGS/IMPRESSION: There is no evidence of acute fracture or dislocation. Soft tissue swelling is noted around the left ankle. The visualized joint space is well maintained. The alignment is anatomical. There is no radiopaque foreign body. HS:Y
[2024-10-16] MEDS ORDERED: ACCU-CHEK COMFORT CURVE STRIP VI STA (23:14)
[2024-10-16] MEDS ORDERED: InsuLIN REG 1unit/0.01ml Soln (100units/ml) IV ONE (23:15)
[2024-10-16] MEDS ORDERED: DEXTROSE (50%) 50ML SYRG IV ONE (23:15)
[2024-10-16 23:18] LABS: Urine Bacteria None Seen /hpf (None Seen)
--- NOTE | 2024-10-16 23:20 | DVH ---
CLINICAL HISTORY: Lower extremity pain and swelling TECHNIQUE: Color and duplex doppler imaging of the left lower extremity veins was performed. Vessel c ompression if possible was also performed. WID: COMPARISON: None FINDINGS: Left common femoral vein: Normal compressibility and flow. Left femoral vein: Normal compressibility and flow. Left popliteal vein: Normal compressibility and flow. Proximal calf veins are normally compressible. IMPRESSION: NO SONOGRAPHIC EVIDENCE FOR DEEP VENOUS THROMBOSIS IN THE LEFT LOWER EXTREMITY VEINS.
[2024-10-16 23:45] LABS: Urine Blood TRACE /uL (Negative); Urine Clarity Clear (Clear); Urine Color Light-Yellow (Yellow); Urine Protein, UAD 2+ (Negative); Urine Specific Gravity 1.034 (1.001-1.035); Urine Squamous Epithelial Cell None Seen /hpf (<5); Urine Urobilinogen Normal (Negative); Urine WBC 4 /HPF (0-5); Urine pH 6.5 (5.0-9.0)
[2024-10-16] MEDS ORDERED: NITROGLYCERIN 0.4 MG SL TAB SL PRN (23:45)
[2024-10-16] MEDS ORDERED: ACETAMINOPHEN 325 MG TAB PO PRN (23:45)
[2024-10-16] MEDS ORDERED: DOCUSATE SOD 100 MG CAP PO PRN (23:45)
[2024-10-16] MEDS ORDERED: DEXTROSE (50%) 50ML SYRG IV PRN (23:45)
[2024-10-16] MEDS ORDERED: PANTOPRAZOLE 40 MG/10 ML VIAL INJ IV ONE (23:45)
[2024-10-16] MEDS ORDERED: MORPHINE SULFATE INJ 2 MG/ml SYRG IV PRN ×2 (23:45)
[2024-10-16] MEDS ORDERED: ENOXAPARIN SOD 40 MG/0.4 ML SYRINGE SC ONE (23:45)
[2024-10-16] MEDS ORDERED: ONDANSETRON HCL 4 MG/2 ML VIAL IV PRN (23:45)
[2024-10-17] MEDS ORDERED: DEXTROSE (50%) 50ML SYRG IV ONE
[2024-10-17 00:05] VITALS: PULSE 80
[2024-10-17 00:09] LABS: Amphetamine Screen, Urine Neg (NEGATIVE); Barbiturate Scree,Urine Neg (NEGATIVE); Benzodiazephine Screen, Urine Neg (NEGATIVE); Cocaine Screen, Urine Neg (NEGATIVE); Opiate Scree,Urine Neg (NEGATIVE)
--- NOTE | 2024-10-17 00:13 | DVHHP2 ---
History of Present Illness History of Present Illness Patient is 34 years old female with past medical history of diabetes mellitus type 2, bronchitis with a complaint of chest pain. Patient reported her chest pain started around 4:25 p.m. on 09/16/2024 while she was sitting and working on a computer. Chest pain was sudden once it, 10/10 in severity, sharp pain shooting like, intermittent, aggravated with the emotion, no relieving factor. Patient was endorsed her blood pressure was elevated at home from 133 x 97-186 over 120 but on arrival at hospital systolic was 140s. Patient also left leg swelling for last 4 days, denied any trauma or prolonged sitting. Initial lab workup revealed troponin and BNP with a normal limit, elevated blood sugar 448, hemoglobin 11.7. Urine Glucose 4+. With a positive for cannabinoids. CXR- no acute cardiopulmonary disease, Doppler study of the left lower extremity negative for DVT. Of the left ankle revealed-There is no evidence of acute fracture or dislocation. Soft tissue swelling is noted around the left ankle. Past Medical History Mellitus type 2, bronchitis/asthma Review of Systems Review of Systems Allergy- Iodine Patient was seen today at the bedside. P Cardiovascular- deny acute shortness of breath or cough or palpitation Respiratory denies short of breath or wheezing Gastrointestinal- denies any rectal bleeding, nausea or vomiting Musculoskeletal-denies acute joint swelling or tenderness or redness Neurological- denies acute dysarthria, dysphagia, change in vision Psychiatry- denies depression or SI or HI Skin- denies acute rash or purpura Allergies: Coded Allergies: Iodine (Verified Allergy, Unknown, 07/14/23) Medications Current Medications Medications Dose Ordered Sig/Radha Route Start Time Stop Time Status Last Admin Dose Admin Sodium Chloride 10 ml Q8HR IV 10/17/24 06:00 Ondansetron HCl 4 mg Q4HP PRN IV 10/16/24 23:45 Docusate Sodium 100 mg BIDPRN PRN PO 10/16/24 23:45 Acetaminophen 650 mg Q6HP PRN PO 10/16/24 23:45 Morphine Sulfate 2 mg Q4HPRN PRN IV 10/16/24 23:45 Nitroglycerin 0.4 mg Q5MINP PRN SL 10/16/24 23:45 Morphine Sulfate 2 mg Q30M PRN IV 10/16/24 23:45 Diagnostic Test (Pha) 1 strip ACHS 10/17/24 07:00 Insulin Human Regular HS SC 10/17/24 22:00 Insulin Human Regular AC SC 10/17/24 07:00 Dextrose 50 ml UD PRN IV 10/16/24 23:45 Pantoprazole Sodium 40 mg DAILY IV 10/18/24 10:00 Enoxaparin Sodium 40 mg DAILY SC 10/18/24 10:00 Exam Vital Signs Vital Signs Date Time Temp Pulse Resp B/P (MAP) Pulse Ox O2 Delivery O2 Flow Rate FiO2 10/16/24 21:43 95 10/16/24 21:25 98.8 18 143/97 (112) 100 98.8 Exam General examination- make, alert, oriented, convert HEENT- PEERLA, no acute nasal discharge Cardiovascular- S1-S2 audible, rate and rhythm regular, no murmur Respiratory- CTAB, no wheeze or rhonchi Gastrointestinal-nontender, bowel sound+. Nondistended Musculoskeletal-no acute joint swelling or tenderness or redness Lower extremity- bilateral leg swelling especially left more than right Neurological- cranial nerves intact, no acute dysarthria or dysphagia Psychiatry- denies depression or SI or HI Skin- no acute rash or purpura Labs/Xrays Labs Test 10/17/24 00:00 10/16/24 21:39 10/16/24 21:29 10/16/24 21:26 Range/Units White Blood Count 4.4 4.4-10.8 10^3/uL Red Blood Count 4.18 4.0-5.20 10^6/uL Hemoglobin 11.7 L 12.2-16.2 g/dL Hematocrit 34.7 L 36.0-46.0 % Mean Corpuscular Volume 83.0 80.0-100.0 fL Mean Corpuscular Hemoglobin 28.0 28.0-32.0 pg Mean Corpuscular Hemoglobin Concent 33.7 32.0-36.0 g/dL Red Cell Distribution Width 13.4 11.8-14.3 % Platelet Count 274 140-450 10^3/uL Mean Platelet Volume 8.0 6.9-10.8 fL Neutrophils (%) (Auto) 51.9 37.0-80.0 % Lymphocytes (%) (Auto) 41.4 10.0-50.0 % Monocytes (%) (Auto) 5.2 0.0-12.0 % Eosinophils (%) (Auto) 0.7 0.0-7.0 % Basophils (%) (Auto) 0.8 0.0-2.0 % Neutrophils # (Auto) 2.3 1.6-8.6 10 ^3/uL Lymphocytes # (Auto) 1.8 0.4-5.4 10 ^3/uL Monocytes # (Auto) 0.2 0-1.3 10 ^3/uL Eosinophils # (Auto) 0 0-0.8 10 ^3/uL Basophils # (Auto) 0 0-0.2 10 ^3/uL Nucleated Red Blood Cells 0.1 % Sodium Level 137 136-145 mmol/L Potassium Level 3.9 3.5-5.1 mmol/L Chloride Level 103 98-107 mmol/L Carbon Dioxide Level 28 20-31 mmol/L Anion Gap 6 5-15 Blood Urea Nitrogen 10 9-23 mg/dL Creatinine 0.99 0.550-1.02 mg/dL Glomerular Filtration Rate Calc 76 >90 mL/min BUN/Creatinine Ratio 10.1 10.0-20.0 Serum Glucose 448 *H 74-106 mg/dL POC Glucose 404 *H 70-106 mg/dl Calcium Level 9.2 8.7-10.4 mg/dL Total Bilirubin 0.4 0.2-1.0 mg/dL Aspartate Amino Transferase (AST) 9 L 13-40 U/L Alanine Aminotransferase (ALT) 11 7-40 U/L Alkaline Phosphatase 70 46-116 U/L B-Type Natriuretic Peptide 23.57 0-100 pg/mL Total Protein 6.7 5.7-8.2 g/dL Albumin 3.9 3.2-4.8 g/dL Beta-Hydroxybutyric Acid 0.062 < 0.4 mmol/L Urine Color Light-yellow Yellow Urine Clarity Clear Clear Urine pH 6.5 5.0-9.0 Urine Specific [place] 1.034 1.001-1.035 Urine Protein 2+ H Negative Urine Ketones Negative Negative Urine Blood Trace H Negative /uL Urine Nitrite Negative Negative Urine Bilirubin Negative Negative Urine Urobilinogen Normal Negative mg/dL Urine Leukocyte Esterase Negative Negative /uL Urine RBC 2 0 - 4 /hpf Urine Microscopic WBC 4 0-5 /HPF Urine Squamous Epithelial Cells None seen <5 /hpf Urine Bacteria None seen None Seen /hpf Urine Glucose 4+ H Normal mg/dL Assessment/Plan Assessment/Plan Assessment and plan Acute chest pain, rule out acute coronary syndrome Hypertensive urgency Uncontrolled diabetes mellitus Bilateral leg swelling, rule out DVT Asthma/bronchitis no exacerbation Obesity Substance abuse, UDS positive for cannabinoids Doppler Study of the left lower extremity negative for DVT CXR no acute cardiopulmonary disease Left ankle x-ray no acute fracture, soft tissue swelling Plan Continue insulin as per sliding scale Normal saline as prescribed Pantoprazole as prescribed Lovenox DVT prophylaxis Pending echo 2D report Patient was counseled about the effect of substance abuse on health Goals of care, Code status ; discussed with >15 minutes PUD prophylaxis: Pantoprazole DVT prophylaxis: Lovenox Plan discussed with Dr. Hewitt , nursing staff, Total time spent on patient evaluation, chart review, assessment and plan, discussion discussion >35 minutes Plan discussed with: Patient, Other (RN) My Orders Orders - GINGER LO RESIDENT Procedure Category Date Status Time Admit ADMIT 10/16/24 Transmitted 23:34 Code Status CODE 10/16/24 Transmitted 23:34 Sodium Chloride Lock PHA 10/17/24 In Process (Saline Lock Ns) 06:00 Ondansetron Hcl PHA 10/16/24 In Process (Zofran) 23:45 Docusate Sodium PHA 10/16/24 In Process Capsule (Colace 23:45 Echo 2d Mode Cardiac US 10/16/24 Logged DOP 23:34 Acetaminophen Tablet PHA 10/16/24 In Process (Tylenol Tablet) 23:45 Morphine Sulfate PHA 10/16/24 In Process Injection 23:45 Nitroglycerin PHA 10/16/24 In Process Sublingual (Ntrostat 23:45 Morphine Sulfate PHA 10/16/24 In Process Injection 23:45 Oxygen By Nasal RT 10/16/24 Transmitted Cannula 23:34 Stat Ekg For Chest LORIN 10/16/24 In Process Pain 23:34 Notify Md Of Changes LORIN 10/16/24 In Process From Base 23:34 Production Or Plant Engineer For LORIN 10/16/24 In Process 24 Hours 23:34 Emergency Dysrhythmia LORIN 10/16/24 In Process Protocol 23:34 Rhythm Strips Once LORIN 10/16/24 In Process Every Shift 23:34 Sodium Chloride 0.9% PHA 10/16/24 In Process 23:45 Sodium Chloride 0.9% PHA 10/16/24 In Process 23:45 Glucose Blood PHA 10/17/24 In Process (Accu-Chek Comfort 07:00 Insulin R (Human) PHA 10/17/24 In Process (Insulin R) 22:00 Insulin R (Human) PHA 10/17/24 In Process (Insulin R) 07:00 Dextrose 50% Syringe PHA 10/16/24 In Process 23:45 Lactic Acid W/ Reflex LAB 10/16/24 In Process Order 23:38 Thyroid Stimulating LAB 10/16/24 In Process Hormone 23:38 Magnesium LAB 10/16/24 In Process 23:39 Comprehensive LAB 10/17/24 Logged Metabolic Panel 04:00 Complete Blood Count LAB 10/17/24 Logged 04:00 Magnesium LAB 10/17/24 Logged 04:00 Drug Screen LAB 10/16/24 In Process 23:42 Covid19 Antigen Nicole LAB 10/16/24 Logged Rapid Influenza A&B LAB 10/16/24 Logged 23:43 Lipase LAB 10/16/24 In Process 21:39 Pantoprazole PHA 10/18/24 In Process (Protonix) 10:00 Enoxaparin Sodium PHA 10/18/24 In Process (Lovenox) 10:00 Date of Service: October 16, 2024 Billing Provider: AMBER HEWITT MD Common Visit Codes: [id number] INP/OBS CARE (HIGH) Secondary Visit Codes: [id number] CARE PLAN 30 MINUTES GINGER LO RESIDENT October 17, 2024 00:13
[2024-10-17] MEDS ORDERED: MAGNESIUM SULFATE 1GM/100ML 100 ML IV SCH (00:15)
[2024-10-17] MEDS ORDERED: SODIUM CHLORIDE 0.9% 1,000 ML IV SCH (00:30)
[2024-10-17 00:31] LABS: Cannabinoid Screen, Urine Pos (NEGATIVE)
[2024-10-17 00:33] LABS: Magnesium 1.4 mg/dL (1.6-2.6)
[2024-10-17 00:33] LABS: Phencyclidine Screen, Urine Neg (NEGATIVE)
[2024-10-17] MEDS ORDERED: ACCU-CHEK COMFORT CURVE STRIP VI ONE (01:00)
[2024-10-17] MEDS ORDERED: SODIUM CHLOR 0.9% PF (SALINE LOCK) 10ML VIAL/SYR IV SCH (06:00)
--- NOTE | 2024-10-17 06:19 | DVHDSRES ---
Discharge Summary Date of Admission Resident Creating Document: GINGER LO RESIDENT October 16, 2024 at 23:34 Date of Discharge: October 17, 2024 Admitting Diagnosis Acute chest pain, rule out acute coronary Labs/Diagnostic Data: Laboratory Results Test 10/17/24 00:00 10/16/24 21:39 10/16/24 21:29 10/16/24 21:26 Troponin I High Sensitivity 3 ng/L (</=34) White Blood Count 4.4 10^3/uL (4.4-10.8) Red Blood Count 4.18 10^6/uL (4.0-5.20) Hemoglobin 11.7 g/dL (12.2-16.2) Hematocrit 34.7 % (36.0-46.0) Mean Corpuscular Volume 83.0 fL (80.0-100.0) Mean Corpuscular Hemoglobin 28.0 pg (28.0-32.0) Mean Corpuscular Hemoglobin Concent 33.7 g/dL (32.0-36.0) Red Cell Distribution Width 13.4 % (11.8-14.3) Platelet Count 274 10^3/uL (140-450) Mean Platelet Volume 8.0 fL (6.9-10.8) Neutrophils (%) (Auto) 51.9 % (37.0-80.0) Lymphocytes (%) (Auto) 41.4 % (10.0-50.0) Monocytes (%) (Auto) 5.2 % (0.0-12.0) Eosinophils (%) (Auto) 0.7 % (0.0-7.0) Basophils (%) (Auto) 0.8 % (0.0-2.0) Neutrophils # (Auto) 2.3 10 ^3/uL (1.6-8.6) Lymphocytes # (Auto) 1.8 10 ^3/uL (0.4-5.4) Monocytes # (Auto) 0.2 10 ^3/uL (0-1.3) Eosinophils # (Auto) 0 10 ^3/uL (0-0.8) Basophils # (Auto) 0 10 ^3/uL (0-0.2) Nucleated Red Blood Cells 0.1 % D-Dimer, Quantitative 0.44 mg/L FEU (0.0-0.49) Sodium Level 137 mmol/L (136-145) Potassium Level 3.9 mmol/L (3.5-5.1) Chloride Level 103 mmol/L (98-107) Carbon Dioxide Level 28 mmol/L (20-31) Anion Gap 6 (5-15) Blood Urea Nitrogen 10 mg/dL (9-23) Creatinine 0.99 mg/dL (0.550-1.02) Glomerular Filtration Rate Calc 76 mL/min (>90) BUN/Creatinine Ratio 10.1 (10.0-20.0) Serum Glucose 448 mg/dL (74-106) POC Glucose 404 mg/dl (70-106) Lactic Acid Level 1.2 mmol/L (0.4-2.0) Calcium Level 9.2 mg/dL (8.7-10.4) Magnesium Level 1.4 mg/dL (1.6-2.6) Total Bilirubin 0.4 mg/dL (0.2-1.0) Aspartate Amino Transferase (AST) 9 U/L (13-40) Alanine Aminotransferase (ALT) 11 U/L (7-40) Alkaline Phosphatase 70 U/L (46-116) B-Type Natriuretic Peptide 23.57 pg/mL (0-100) Total Protein 6.7 g/dL (5.7-8.2) Albumin 3.9 g/dL (3.2-4.8) Lipase 28 U/L (12-53) Beta-Hydroxybutyric Acid 0.062 mmol/L (< 0.4) Thyroid Stimulating Hormone (TSH) 2.32 uIU/mL (0.55-4.78) Urine Opiates Screen Neg (NEGATIVE) Urine Fentanyl Screen Neg (NEGATIVE) Urine Barbiturates Screen Neg (NEGATIVE) Urine Phencyclidine Screen Neg (NEGATIVE) Urine Amphetamines Screen Neg (NEGATIVE) Urine Benzodiazepines Screen Neg (NEGATIVE) Urine Cocaine Screen Neg (NEGATIVE) Urine Cannabinoids Screen Pos (NEGATIVE) Urine Color Light-yellow (Yellow) Urine Clarity Clear (Clear) Urine pH 6.5 (5.0-9.0) Urine Specific [place] 1.034 (1.001-1.035) Urine Protein 2+ (Negative) Urine Ketones Negative (Negative) Urine Blood Trace /uL (Negative) Urine Nitrite Negative (Negative) Urine Bilirubin Negative (Negative) Urine Urobilinogen Normal mg/dL (Negative) Urine Leukocyte Esterase Negative /uL (Negative) Urine RBC 2 /hpf (0 - 4) Urine Microscopic WBC 4 /HPF (0-5) Urine Squamous Epithelial Cells None seen /hpf (<5) Urine Bacteria None seen /hpf (None Seen) Urine Glucose 4+ mg/dL (Normal) Other Laboratory Tests 10/16/24 21:39 Brief Hx & Hospital Course: Patient is 34 years old female with past medical history of diabetes mellitus type 2, bronchitis with a complaint of chest pain. Patient reported her chest pain started around 4:25 p.m. on 09/16/2024 while she was sitting and working on a computer. Chest pain was sudden once it, 10/10 in severity, sharp pain shooting like, intermittent, aggravated with the emotion, no relieving factor. Patient was endorsed her blood pressure was elevated at home from 133 x 97-186 over 120 but on arrival at hospital systolic was 140s. Patient also left leg swelling for last 4 days, denied any trauma or prolonged sitting. Initial lab workup revealed troponin and BNP with a normal limit, elevated blood sugar 448, hemoglobin 11.7. Urine Glucose 4+. With a positive for cannabinoids. CXR- no acute cardiopulmonary disease, Doppler study of the left lower extremity negative for DVT. Of the left ankle revealed-There is no evidence of acute fracture or dislocation. Soft tissue swelling is noted around the left ankle. P atient was put on insulin sliding scale due to uncontrolled diabetes mellitus, ordered echo 2D for further evaluation. Patient eloped. Patient's condition was undetermined on discharge. Operations or Procedures [place] [id number] Ph: [phone] DIAGNOSTIC IMAGING Diagnostic Imaging Report : [id number] Signed PATIENT: ANGELES MAKIACCT: [id number] UNIT: [id number] : 1990 LOC: ER ROOM / BED: / AGE / SEX: 34 / F ADM STATUS: REG ER SERVICE 33 ORDERING PHYSICIAN: GENNY HAILE MD PROCEDURE(s): LANK2 - L ANKLE 2 VIEW XRAY REASON: L ankle pain and swelling ORDER NUMBER(s): [id number], ACCESSION NUMBER(s): [id number] CLINICAL INDICATION: L ankle pain and swelling TECHNIQUE: 2 radiographic views of the left ankle were obtained. Comparison: None FINDINGS/IMPRESSION: There is no evidence of acute fracture or dislocation. Soft tissue swelling is noted around the left ankle. The visualized joint space is well maintained. The alignment is anatomical. There is no radiopaque foreign body. HS:Y ATED BY: ELLIOT MARTINEZ Jr., DO DICTATED DATE/TIME: 10/16/242256 SIGNED BY: ELLIOT MARTINEZ Jr., DO SIGNED DATE/TIME: 10/16/242256 CC: [place] [address] Ph: [phone] DIAGNOSTIC IMAGING Diagnostic Imaging Report : [id number] Signed PATIENT: ANGELES MAKIT: [id number] UNIT: [id number] : 1990 LOC: ER ROOM / BED: / AGE / SEX: 34 / F ADM STATUS: REG ER SERVICE 33 ORDERING PHYSICIAN: GENNY HAILE MD PROCEDURE(s): CXR1 - CHEST XRAY 1 VIEW REASON: cp ORDER NUMBER(s): [id number], ACCESSION NUMBER(s): [id number] CHEST RADIOGRAPH Indication: cp Technique: Single frontal view of the chest was obtained Comparison: None FINDINGS: Lines and Tubes: None Lungs: No focal consolidation. Pleura: No effusion. No pneumothorax. Cardiomediastinal contours: Unremarkable Bones: No acute osseous abnormality. IMPRESSION: 1. No acute cardiopulmonary disease. HS:Y ATED BY: ELLIOT MARTINEZ Jr., DO DICTATED DATE/TIME: 10/16/242253 SIGNED BY: ELLIOT MARTINEZ Jr., DO SIGNED DATE/TIME: 10/16/242253 CC: [place] [address] Ph: [phone] DIAGNOSTIC IMAGING Diagnostic Imaging Report : [id number] Signed PATIENT: ANGELES MAKIT: [id number] UNIT: [id number] : 1990 LOC: ER ROOM / BED: / AGE / SEX: 34 / F ADM STATUS: REG ER SERVICE 33 ORDERING PHYSICIAN: GENNY HAILE MD PROCEDURE(s): LLDVT - LT Lower DVT REASON: Lower extremity pain and swelling ORDER NUMBER(s): [id number], ACCESSION NUMBER(s): [id number] CLINICAL HISTORY: Lower extremity pain and swelling TECHNIQUE: Color and duplex doppler imaging of the left lower extremity veins was performed. Vessel compression if possible was also performed. WID: COMPARISON: None FINDINGS: Left common femoral vein: Normal compressibility and flow. Left femoral vein: Normal compressibility and flow. Left popliteal vein: Normal compressibility and flow. Proximal calf veins are normally compressible. IMPRESSION: NO SONOGRAPHIC EVIDENCE FOR DEEP VENOUS THROMBOSIS IN THE LEFT LOWER EXTREMITY VEINS. ATED BY: JACKLYN MONCADA MD DICTATED DATE/TIME: 10/16/242317 SIGNED BY: JACKLYN MONCADA MD SIGNED DATE/TIME: 10/16/242317 CC: Condition at Discharge: Undetermined Final Diagnosis/Problems List Acute chest pain, rule out acute coronary syndrome Hypertensive urgency Uncontrolled diabetes mellitus Bilateral leg swelling, DVT could not be ruled out Asthma/bronchitis no exacerbation Obesity Substance abuse, UDS positive for cannabinoids Discharge Disposition: Eloped Discharge Instruct/Medications Diet: Cardiac 2g Na,low cholest Medications: As per EMR Discharge Statement: "Patient was advised to return to the ER or call 911 if any headaches, dizziness, shortness of breath, chest pain, abdominal pain, bleeding, fevers, or worsening of medical condition. Patient was counseled about treatment plan, medications, possible side effects, patientverbalized understanding. All questions were answered to the best of my ability. This discharge took greater then 30 minutes in planning, reviewing documentation, counseling the patient, and discussing with other team members." ASSESSMENT ASSESSMENT Assessment Date of Service: October 17, 2024 Billing Provider: AMBER HEWITT MD Common Visit Codes: 04738-HMQ/OBS DISCH DAY <30MIN GINGER LO October 17, 2024 06:18 AMBER HEWITT MD October 17, 2024 17:03
[2024-10-17] MEDS ORDERED: InsuLIN REG 1unit/0.01ml Soln (100units/ml) SC SCH ×2 (07:00→22:00)
[2024-10-17] MEDS ORDERED: ACCU-CHEK COMFORT CURVE STRIP VI SCH (07:00)
[2024-10-17] MEDS ORDERED: ASPirin 81 mg TAB PO SCH (10:00)
--- NOTE | 2024-10-17 10:28 | ECG ---
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
[2024-10-17] MEDS ORDERED: LISI20TA56 PO (12:44)
--- NOTE | 2024-10-17 14:01 | ECG ---
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
[2024-10-17] MEDS ORDERED: ATORVASTATIN 20 MG TAB PO SCH (22:00)
[2024-10-18] MEDS ORDERED: PANTOPRAZOLE 40 MG/10 ML VIAL INJ IV SCH (10:00)
[2024-10-18] MEDS ORDERED: ENOXAPARIN SOD 40 MG/0.4 ML SYRINGE SC SCH (10:00)
--- NOTE | 2024-10-20 12:43 | ECG ---
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
== END 2024-10-17 12:45 | disposition left against medical advice (07) | DRG 311 ==
LOC: ER 21:20 → OVERFLOW 23:34
PROVIDERS: ADMIT Internal Medicine; ATTEND Emergency Medicine
DX: I24.9 Acute ischemic heart disease, unspecified (principal); I16.0 Hypertensive urgency; E11.65 Type 2 diabetes mellitus with hyperglycemia; Z53.29 Procedure and treatment not carried out because of patient's decision for other reasons; E66.9 Obesity, unspecified; J45.909 Unspecified asthma, uncomplicated; F19.10 Other psychoactive substance abuse, uncomplicated; Z88.8 Allergy status to other drugs, medicaments and biological substances; Z79.899 Other long term (current) drug therapy
CPT/HCPCS: 36415; 71045; 73600; 80053; 80307; 81001; 82010; 82962; 83605; 83690; 83735; 83880; 84443; 84484; 85025; 85379; 93005; 93971; G0378

== ENCOUNTER 2024-10-17 10:07 | Emergency (ER) | payer BC, MEDICAID ==
[~2024-10-17] VITALS: Ht 172.7 cm; Wt 91.6 kg
[2024-10-17 10:31] VITALS: BP 146/95; RESP 18; TEMP 99.2; O2SAT 98
[2024-10-17 11:03] VITALS: PULSE 90
--- NOTE | 2024-10-17 11:03 | ED.PDOC ---
History of Present Illness HPI Comments 34F presents to the ER w/ prior MHx of DM and w/ the c/c of CP/SOB. Pt reports that she was in the ER of [facility] yesterday but eloped due from us taking a long time. I am going to include the HPI from yesterday "34-year-old female who came to ER for chest pains. Patient states about 5:00 p.m. today, she was at work when she developed intermittent episodes of sharp left-sided chest pains, nonradiating, 7/10 intensity, associated with shortness of breath. Patient admits that she has been stressed and anxious recently, which might them attributed to her chest pains. Patient also coming for swelling of the left ankle for the past 2 days. Denies any recent trauma. Patient does have history of diabetes, blood sugar on scene was 404." Today the pt had a BP of 143/97 in triage and complaining of left sided swollen feet. Denies chills, fever, N/V/D, SOB, CP, or other associated symptom's, modifiers, or recent injuries or sick contact at this time. Chief Complaint: Shortness of Breath Time Seen by MD: 10:50 Primary Care Provider: TREY Reviewed Notes: Nurses Notes, Medications, Allergies Allergies: Coded Allergies: Iodine (Verified Allergy, Unknown, 07/14/23) Home Meds Active Scripts Lisinopril (Lisinopril) 20 Mg Tab, 1 TAB PO DAILY, #90 TAB 1 Refill Prov:EMILIE BARRON MD 10/17/24 Dicyclomine Hcl (BENTYL CAPSULE) 10 Mg Cp, 2 CAP PO Q6HP PRN, #60 CAP 11 Refills prn abdominal pain Prov:JOSE EDUARDO MONDRAGON MD 07/24/24 Loperamide HCl (Imodium A-D) 2 Mg Cap, 2 MG PO Q6HP PRN, #20 CAP prn diarrhea Prov:JOSE EDUARDO MONDRAGON MD 07/24/24 Ondansetron Odt 4MG Tab (ZOFRAN PO) 4 Mg Tb, 4 MG PO TID PRN, #30 TAB prn n/v ODT TAB-DISSOLVE IN MOUTH, THEN SWALLOW Prov:JOSE EDUARDO MONDRAGON MD 07/24/24 Cephalexin Monohydrate (Cephalexin) 500 Mg Cap, 1 CAP PO QID for 10 Days, #40 CAP Prov:JOSE EDUARDO MONDRAGON MD 07/24/24 Blood Glucose Monitoring Suppl (D-Care Glucometer Kit/Glu W/Device) 1 Kit Kit, KIT XX BID, #1 Prov:JONNA DUTTA MD 07/14/23 Glyburide (Micronase) 2.5 Mg Tb, 1 TAB PO BID for 90 Days, #180 TAB 1 Refill Prov:JONNA DUTTA MD 07/14/23 Naproxen Sodium (Naproxen) 220 Mg Tab, 220 MG PO BID for 7 Days, #14 TAB Prov:JONNA DUTTA MD 07/14/23 Amlodipine Besylate (NORVASC TABLET) 5 Mg Tb, 0.5 TAB PO DAILY for 60 Days, #30 TAB 5 Refills Prov:JONNA DUTTA MD 07/14/23 Information Source: Patient Mode of Arrival: Ambulatory Severity: Moderate Timing: Days Duration: Since onset, Days Prehospital treatment: None Past Medical History PAST MEDICAL HISTORY: DM Surgical History: Denies all surgeries LEARNING DEVELOPER History: Denies all LEARNING DEVELOPER Hx, Other Family History Family History: Reviewed,noncontributory to illness, Family hx of DM, Family hx of HTN Social History Smoker: Non-Smoker Alcohol: Rarely Drugs: Denies Drug Use Lives In: Home Constitutional: reports: others (Swollen foot/High BP); denies: chills, diaphoresis, fatigue, fever, malaise, sweats, weakness EENTM: denies: blurred vision, double vision, ear bleeding, ear discharge, ear drainage, ear pain, ear ringing, eye pain, eye redness, hearing loss, mouth pain, mouth swelling, nasal discharge, nose bleeding, nose congestion, nose pain, photophobia, tearing, throat pain, throat swelling, voice changes, others Respiratory: denies: cough, hemoptysis, orthopnea, SOB at rest, shortness of breath, SOB with excertion, stridor, wheezing, others Cardiovascular: denies: chest pain, dizzy spells, diaphoresis, Dyspnea on exertion, edema, irregular heart beat, left arm pain, lightheadedness, palpitations, PND, syncope, others Gastrointestinal: denies: abdomen distended, abdominal pain, blood streaked bowels, constipated, diarrhea, dysphagia, difficulty swallowing, hematemesis, melena, nausea, poor appetite, poor fluid intake, rectal bleeding, rectal pain, vomiting, others Genitourinary: denies: abnormal vagina bleeding, burning, dyspareunia, dysuria, flank pain, frequency, hematuria, incontinence, pain, , vagina discharge, urgency, others Neurological: denies: dizziness, fainting, headache, left sided numbness, left sided weakness, numbness, paresthesia, pre-existing deficit, right sided numbness, right sided weakness, seizure, speech problems, tingling, tremors, weakness, others Musculoskeletal: denies: back pain, gout, joint pain, joint swelling, muscle pain, muscle stiffness, neck pain, others Integumetry: denies: bruises, change in color, change in hair/nails, dryness, laceration, lesions, lumps, rash, wounds, others Allergic/Immunocompromised: denies: Difficulty Healing, Frequent Infections, Hives, Itching, others Hematologic/Lymphatic: denies: anemia, blood clots, easy bleeding, easy bruising, swollen glands, others Endocrine: denies: excessive hunger, excessive sweating, excessive thirst, excessive urination, flushing, intolerance to cold, intolerance to heat, unexplained weight gain, unexplained weight loss, others Psychiatric: denies: anxiety, bipolar disorder, depression, hopeless, panic disorder, schizophrenia, sleepless, suicidal, others All Other Systems: Reviewed and Negative Physical Exam General Appearance: No Apparent Distress HEENT: Normal ENT Inspection, Pharynx Normal, TMs Normal Neck: Full Range of Motion, Non-Tender, Normal, Normal Inspection Respiratory: Chest Non-Tender, Lungs Clear, No Accessory Muscle Use, No Respiratory Distress, Normal Breath Sounds Cardiovascular: No Edema, No JVD, No Murmur, No Gallop, Normal Peripheral Pulses, Regular Rate/Rhythm Breast Exam: Deferred Gastrointestinal: No Organomegaly, Non Tender, No Pulsatile Mass, Normal Bowel Sounds, Soft Genitalia: Deferred Pelvic: Deferred Rectal: Deferred Extremities: No calf tenderness, Normal capillary refill, Normal inspection, Normal range of motion, Non-tender, No pedal edema Musculoskeletal : Apperance: Normal Neurologic: Alert, karate instructor II-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 Was a procedure done?: No EKG EKG : Pulse Rate (adult): 90 [place]: Normal Cardiac Rhythm: NSR Block: None Hypertrophy: None ST: Normal Differential Dx Considerations may include: Hypertensive urgency, atypical chest pain, dehydration X-Ray, Labs, Meds, VS Vital Signs Date Time Temp Pulse Resp B/P (MAP) Pulse Ox O2 Delivery O2 Flow Rate FiO2 10/17/24 12:05 143/88 10/17/24 11:03 90 10/17/24 10:31 99.2 93 18 146/95 (112) 98 99.2 10/17/24 10:26 90 Time of 1ST Reevaluation: 11:20 Reevaluation 1ST: Unchanged Patient Education/Counseling: Diagnosis, Treatment, Prognosis Family Education/Counseling: No Family Present Departure 1 Departure Time of Disposition: 12:44 Impression: Primary Impression: Hypertensive urgency Additional Impression: Atypical chest pain Disposition: 01 HOME / SELF CARE / HOMELESS Condition: Fair e-Prescriptions Lisinopril (Lisinopril) 20 Mg Tab 1 TAB PO DAILY, #90 TAB 1 Refill Prov: EMILIE BARRON MD 10/17/24 Discharged With: Self Critical Care Note Critical Care Time?: No Stability Stability form required: No Heart Score Heart Score: Heart Score Response (Comments) Value History N/A 0 EKG N/A 0 Age N/A 0 Risk Factors N/A 0 Troponin N/A 0 Total 0 I personally scribed for EMILIE BARRON MD ([email or web address]) on 10/17/24 at 11:03. Electronically submitted by Jovan Kirby ([email or web address]). I personally scribed for EMILIE BARRON MD ([email or web address]) on 10/17/24 at 11:03. Electronically submitted by Jovan Kirby ([email or web address]). EMILIE BARRON MD October 17, 2024 11:03
[2024-10-17] MEDS: cloNIDine HCL 0.1 MG TAB PO ONE (12:05)
[2024-10-17] MEDS ORDERED: LISI20TA56 PO (12:44)
--- NOTE | 2024-10-21 10:39 | ECG ---
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
== END 2024-10-17 12:45 | disposition home or self-care (01) ==
LOC: ER 10:19
DX: I16.0 Hypertensive urgency (principal); R07.89 Other chest pain; E11.9 Type 2 diabetes mellitus without complications; Z91.040 Latex allergy status; Z79.899 Other long term (current) drug therapy
CPT/HCPCS: 93005

== ENCOUNTER 2024-12-03 06:37 | Emergency (ER) | payer BC, MEDICAID ==
[~2024-12-03] VITALS: Ht 172.7 cm; Wt 129.5 kg
[~2024-12-03 06:37] MED LIST changes: +LISI20TA56 PO
--- NOTE | 2024-12-03 07:19 | ED.PDOC ---
History of present illness HPI Comments 34 y/o F, with PMHx of DM presents to the ED for CC of hyperglycemia. Patient states, she has been experiencing elevated blood sugar readings x3days with associated symptoms of weakness, fatigue, shortness of breath, nausea and vomiting. Patient reports, that she was seen at [facility] yesterday (12/02/24) for same symptoms and was departed home with no significant findings and symptoms have yet persisted. Patient denies change in mentation, excessive thirst, dysuria, or diaphoresis. No other symptoms or modifying factors present at this time. Chief Complaint: Hyperglycemia Time Seen by MD: 06:55 Primary Care Provider: TREY History of present illness: Nurses Notes, Medications, Allergies Allergies: Coded Allergies: Iodine (Verified Allergy, Unknown, 07/14/23) Home Meds Active Scripts Lisinopril (Lisinopril) 20 Mg Tab, 1 TAB PO DAILY, #90 TAB 1 Refill Prov:EMILIE BARRON MD 10/17/24 Dicyclomine Hcl (BENTYL CAPSULE) 10 Mg Cp, 2 CAP PO Q6HP PRN, #60 CAP 11 Refills prn abdominal pain Prov:JOSE EDUARDO MONDRAGON MD 07/24/24 Loperamide HCl (Imodium A-D) 2 Mg Cap, 2 MG PO Q6HP PRN, #20 CAP prn diarrhea Prov:JOSE EDUARDO MONDRAGON MD 07/24/24 Ondansetron Odt 4MG Tab (ZOFRAN PO) 4 Mg Tb, 4 MG PO TID PRN, #30 TAB prn n/v ODT TAB-DISSOLVE IN MOUTH, THEN SWALLOW Prov:JOSE EDUARDO MONDRAGON MD 07/24/24 Cephalexin Monohydrate (Cephalexin) 500 Mg Cap, 1 CAP PO QID for 10 Days, #40 CAP Prov:JOSE EDUARDO MONDRAGON MD 07/24/24 Blood Glucose Monitoring Suppl (D-Care Glucometer Kit/Glu W/Device) 1 Kit Kit, KIT XX BID, #1 Prov:JONNA DUTTA MD 07/14/23 Glyburide (Micronase) 2.5 Mg Tb, 1 TAB PO BID for 90 Days, #180 TAB 1 Refill Prov:JONNA DUTTA MD 2/3/24 Naproxen Sodium (Naproxen) 220 Mg Tab, 220 MG PO BID for 7 Days, #14 TAB Prov:JONNA DUTTA MD 07/14/23 Amlodipine Besylate (NORVASC TABLET) 5 Mg Tb, 0.5 TAB PO DAILY for 60 Days, #30 TAB 5 Refills Prov:JONNA DUTTA MD 07/14/23 Information Source: Patient Mode of Arrival: Ambulatory Timing: Days Duration: Since onset Prehospital treatment: None [place]: None Symptoms: Eating poorly History of: Diabetes Modifying factors: Nothing Associated signs and symptoms: Vomiting Past Medical History PAST MEDICAL HISTORY: DM Surgical History: Denies all surgeries ANALYSIS CONSULTANT History: Denies all ANALYSIS CONSULTANT Hx, Other Family History Family History: Reviewed,noncontributory to illness, Family hx of DM, Family hx of HTN Social History Smoker: Non-Smoker Alcohol: Rarely Drugs: Denies Drug Use Lives In: Home Constitutional: reports: fatigue, weakness; denies: chills, diaphoresis, fever, malaise, sweats, others EENTM: denies: blurred vision, double vision, ear bleeding, ear discharge, ear drainage, ear pain, ear ringing, eye pain, eye redness, hearing loss, mouth pain, mouth swelling, nasal discharge, nose bleeding, nose congestion, nose pain, photophobia, tearing, throat pain, throat swelling, voice changes, others Respiratory: reports: shortness of breath; denies: cough, hemoptysis, orthopnea, SOB at rest, SOB with excertion, stridor, wheezing, others Cardiovascular: denies: chest pain, dizzy spells, diaphoresis, Dyspnea on exe rtion, edema, irregular heart beat, left arm pain, lightheadedness, palpitations, PND, syncope, others Gastrointestinal: reports: nausea, vomiting; denies: abdomen distended, abdominal pain, blood streaked bowels, constipated, diarrhea, dysphagia, difficulty swallowing, hematemesis, melena, poor appetite, poor fluid intake, rectal bleeding, rectal pain, others Genitourinary: denies: abnormal vagina bleeding, burning, dyspareunia, dysuria, flank pain, frequency, hematuria, incontinence, pain, , vagina discharge, urgency, others Neurological: denies: dizziness, fainting, headache, left sided numbness, left sided weakness, numbness, paresthesia, pre-existing deficit, right sided numbness, right sided weakness, seizure, speech problems, tingling, tremors, weakness, others Musculoskeletal: denies: back pain, gout, joint pain, joint swelling, muscle pain, muscle stiffness, neck pain, others Integumetry: denies: bruises, change in color, change in hair/nails, dryness, laceration, lesions, lumps, rash, wounds, others Allergic/Immunocompromised: denies: Difficulty Healing, Frequent Infections, Hives, Itching, others Hematologic/Lymphatic: denies: anemia, blood clots, easy bleeding, easy bruisin g, swollen glands, others Endocrine: denies: excessive hunger, excessive sweating, excessive thirst, excessive urination, flushing, intolerance to cold, intolerance to heat, unexplained weight gain, unexplained weight loss, others Psychiatric: denies: anxiety, bipolar disorder, depression, hopeless, panic disorder, schizophrenia, sleepless, suicidal, others All Other Systems: Reviewed and Negative Physical Exam General Appearance: Moderate Distress HEENT: Normal ENT Inspection, Pharynx Normal, TMs Normal Neck: Full Range of Motion, Non-Tender, Normal, Normal Inspection Respiratory: Chest Non-Tender, Lungs Clear, No Accessory Muscle Use, No Respiratory Distress, Normal Breath Sounds Cardiovascular: No Edema, No JVD, No Murmur, No Gallop, Normal Peripheral Pulses, Regular Rate/Rhythm Breast Exam: Deferred Gastrointestinal: No Organomegaly, Non Tender, No Pulsatile Mass, Normal Bowel Sounds, Soft Genitalia: Deferred Pelvic: Deferred Rectal: Deferred Extremities: No calf tenderness, Normal capillary refill, Normal inspection, Normal range of motion, Non-tender, No pedal edema Musculoskeletal : Apperance: Normal Neurologic: Alert, candy puller II-XII nml as Tested, No Motor Deficits, Normal Affect, Normal Mood, No Sensory Deficits Cerebellar Function: Normal Reflexes: Normal Skin: Dry, Normal Color, Warm Peripheral Pulses: 3+ Radial (R), 3+ Radial (L) Lymphatic: No Adenopathy Was a procedure done? Was a procedure done?: No Differential Diagnosis (DM) Differential Diagnosis: Dehydration, Electrolyte Abnormality, Hyperglycemia X-Ray, Labs, Meds, VS Vital Signs Date Time Temp Pulse Resp B/P (MAP) Pulse Ox O2 Delivery O2 Flow Rate FiO2 12/03/24 08:15 76 174/99 12/03/24 08:04 76 20 97 Room Air* 0 21 12/03/24 08:04 74 20 174/99 (124) 97 12/03/24 07:07 98.1 94 18 159/101 (120) 98 98.1 Lab Test 12/03/24 08:02 12/03/24 07:28 12/03/24 07:01 Range/Units POC Glucose 338 H 353 H 70-106 mg/dl Sodium Level 134 L 136-145 mmol/L Potassium Level 3.8 3.5-5.1 mmol/L Chloride Level 99 98-107 mmol/L Carbon Dioxide Level 22 20-31 mmol/L Anion Gap 13 5-15 Blood Urea Nitrogen 12 9-23 mg/dL Creatinine 0.89 0.550-1.02 mg/dL Glomerular Filtration Rate Calc 87 >90 mL/min BUN/Creatinine Ratio 13.5 10.0-20.0 Serum Glucose 369 H 74-106 mg/dL Calcium Level 9.3 8.7-10.4 mg/dL Current Medications Medications (Trade) Dose Ordered Sig/Radha Route Start Time Stop Time Status Last Admin Sodium Chloride 1,000 ml @ 1,000 mls/hr Q1H ONCE IV 12/03/24 07:15 12/03/24 08:14 DC 12/03/24 08:15 Ondansetron HCl (Zofran) 4 mg ONCE ONCE IV 12/03/24 07:15 12/03/24 07:16 DC 12/03/24 08:12 Insulin Human Regular (InsuLIN R) 6 units ONCE ONCE IV 12/03/24 07:45 12/03/24 07:46 DC 12/03/24 08:14 Prochlorperazine Edisylate (Compazine Inj) 10 mg ONCE ONCE IV 12/03/24 09:00 12/03/24 09:01 DC 12/03/24 09:05 Patient alert. Came in because of nausea. Was seen at [facility] yesterday for the same symptom. Vitals stable. Saturation pristine on room air. Blood pressure slightly elevated. She has not been taking blood pressure medication. Blood sugar elevated. Establish intravenous access. Was given fluids. Was given insulin. Was given labetalol. Was given Zofran. Reviewed her [place] visit. States that she is feeling much better. Was given prescription of Compazine. Satisfied with the treatment plan. Explained to the patient. Was told to follow up with her primary care physician. Was told to come back if there is any problem. Time of 1ST Reevaluation: 07:25 Reevaluation 1ST: Improved Patient Education/Counseling: Diagnosis, Treatment Family Education/Counseling: No Family Present SEPSIS Sepsis Screen Date sepsis recognized/suspect: Dec 03, 2024 Time Sepsis recognized/suspect: 654 Recent Procedure: No On Antibiotic Therapy: No Respiratory Rate >20: No Heart Rate >90: No Temp<36 C (96.8 F) or >38.3 C: No SBP <90 or MAP <65 mmHG: No New Acute Mental Status Change: No Is the patient on CPAP, BIPAP,: No Physician Orders Urinalysis (12/03/24 07:07) Vital Signs Date Time Temp Pulse Resp B/P (MAP) Pulse Ox O2 Delivery O2 Flow Rate FiO2 12/03/24 08:15 76 174/99 12/03/24 08:04 76 20 97 Room Air* 0 21 12/03/24 08:04 74 20 174/99 (124) 97 12/03/24 07:07 98.1 94 18 159/101 (120) 98 98.1 Medications Medications Dose Ordered Sig/Radha Route Start Time Stop Time Status Last Admin Dose Admin Insulin Human Regular 6 units ONCE ONCE IV 12/03/24 07:45 12/03/24 07:46 DC 12/03/24 08:14 Ondansetron HCl 4 mg ONCE ONCE IV 12/03/24 07:15 12/03/24 07:16 DC 12/03/24 08:12 Prochlorperazine Edisylate 10 mg ONCE ONCE IV 12/03/24 09:00 12/03/24 09:01 DC 12/03/24 09:05 Sodium Chloride 1,000 ml @ 1,000 mls/hr Q1H ONCE IV 12/03/24 07:15 12/03/24 08:14 DC 12/03/24 08:15 Departure 1 Departure Time of Disposition: 07:33 Impression: Primary Impression: Uncontrolled diabetes mellitus Qualified Codes: E13.65 - Other specified diabetes mellitus with hyperglycemia Additional Impression: Hypertensive urgency Disposition: 01 HOME / SELF CARE / HOMELESS Condition: Good e-Prescriptions Prochlorperazine Maleate (Compazine) 10 Mg Tb 1 TAB PO DAILY for 10 Days, #10 TAB 3 Refills Prov: STEVE SALDIVAR MD 12/03/24 Discharged With: Self Critical Care Note Critical Care Time?: No Stability Stability form required: No Heart Score Heart Score: Heart Score Response (Comments) Value History N/A 0 EKG N/A 0 Age N/A 0 Risk Factors N/A 0 Troponin N/A 0 Total 0 I personally scribed for STEVE SALDIVAR MD ([email or web address]) on 12/03/24 at 07:19. Electronically submitted by Sheba Garces ([email or web address]). STEVE SALDIVAR MD Dec 03, 2024 07:19
[2024-12-03 08:04] VITALS: PULSE 76; RESP 20; O2SAT 97
[2024-12-03] MEDS: ONDANSETRON HCL 4 MG/2 ML VIAL IV ONE (08:12)
[2024-12-03] MEDS: InsuLIN REG 1unit/0.01ml Soln (100units/ml) IV ONE (08:14)
[2024-12-03] MEDS: SODIUM CHLORIDE 0.9% 1,000 ML IV ONE (08:15)
[2024-12-03] MEDS: LABETALOL HCL 20 MG/4 ML VL IV ONE (08:15)
[2024-12-03 08:20] LABS: Chloride 99 mmol/L (98-107)
[2024-12-03 08:22] LABS: Calcium 9.3 mg/dL (8.7-10.4)
[2024-12-03 08:27] LABS: BUN/Creatinine Ratio 13.5 (10.0-20.0); Blood Urea Nitrogen 12 mg/dL (9-23); Glucose 369 mg/dL (74-106)
[2024-12-03 08:40] LABS: Potassium 3.8 mmol/L (3.5-5.1)
[2024-12-03 08:41] LABS: Anion Gap 13 (5-15); Carbon Dioxide 22 mmol/L (20-31); Sodium 134 mmol/L (136-145)
[2024-12-03] MEDS: PROCHLORPERAZINE EDISYLATE 5 MG/ML 2ML VIAL IV ONE (09:05)
[2024-12-03] MEDS ORDERED: PROC10TA6 PO (09:53)
[2024-12-03 09:55] VITALS: BP 114/66; PULSE 77; RESP 18; TEMP 99.6; O2SAT 98
== END 2024-12-03 10:08 | disposition home or self-care (01) ==
LOC: ER 06:37
DX: E11.65 Type 2 diabetes mellitus with hyperglycemia (principal); I16.0 Hypertensive urgency; Z79.899 Other long term (current) drug therapy; Z91.040 Latex allergy status
CPT/HCPCS: 36415; 80048; 82947; 96361; 96374; 96375; 99284; J0780; J1815; J2405; J7030; 82962

== ENCOUNTER 2024-12-06 00:25 | Emergency (ER) | payer BC, MEDICAID ==
[~2024-12-06] VITALS: Ht 172.7 cm; Wt 85.5 kg
[~2024-12-06 00:25] MED LIST changes: +PROC10TA6 PO
--- NOTE | 2024-12-06 01:01 | ED.PDOC ---
GI ASSESSMENT HPI Comments 34-year-old female who came to ER for nausea and vomiting. Patient has history of diabetes. States for the past 5 days, she has been having intermittent episodes of sharp, cramping, left lower quadrant abdominal pain, nonradiating associated bouts of nausea and vomiting. Described initial a dark blood in vom itus, today had episodes of bright red blood-streaked vomitus. States she feels very weak and dehydrated. Unable to keep anything food or liquids down. Last bowel movement was 5 days ago. Blood sugar upon arrival was 406. Denies fever or urinary symptoms. Chief Complaint: Nausea/Vomiting Time Seen by MD: 01:00 Primary Care Provider: TREY Reviewed Notes: Nurses Notes Allergies: Coded Allergies: Iodine (Verified Allergy, Unknown, 07/14/23) Home Meds Active Scripts Prochlorperazine Maleate (Compazine) 10 Mg Tb, 1 TAB PO DAILY for 10 Days, #10 TAB 3 Refills Prov:STEVE SALDIVAR MD 12/03/24 Lisinopril (Lisinopril) 20 Mg Tab, 1 TAB PO DAILY, #90 TAB 1 Refill Prov:EMILIE BARRON MD 10/17/24 Dicyclomine Hcl (BENTYL CAPSULE) 10 Mg Cp, 2 CAP PO Q6HP PRN, #60 CAP 11 Refills prn abdominal pain Prov:JOSE EDUARDO MONDRAGON MD 07/24/24 Loperamide HCl (Imodium A-D) 2 Mg Cap, 2 MG PO Q6HP PRN, #20 CAP prn diarrhea Prov:JOSE EDUARDO MONDRAGON MD 07/24/24 Ondansetron Odt 4MG Tab (ZOFRAN PO) 4 Mg Tb, 4 MG PO TID PRN, #30 TAB prn n/v ODT TAB-DISSOLVE IN MOUTH, THEN SWALLOW Prov:JOSE EDUARDO MONDRAGON MD 07/24/24 Cephalexin Monohydrate (Cephalexin) 500 Mg Cap, 1 CAP PO QID for 10 Days, #40 CAP Prov:JOSE EDUARDO MONDRAGON MD 07/24/24 Blood Glucose Monitoring Suppl (D-Care Glucometer Kit/Glu W/Device) 1 Kit Kit, KIT XX BID, #1 Prov:JONNA DUTTA MD 07/14/23 Glyburide (Micronase) 2.5 Mg Tb, 1 TAB PO BID for 90 Days, #180 TAB 1 Refill Prov:JONNA DUTTA MD 07/14/23 Naproxen Sodium (Naproxen) 220 Mg Tab, 220 MG PO BID for 7 Days, #14 TAB Prov:JONNA DUTTA MD 07/14/23 Amlodipine Besylate (NORVASC TABLET) 5 Mg Tb, 0.5 TAB PO DAILY for 60 Days, #30 TAB 5 Refills Prov:JONNA DUTTA MD 07/14/23 Information Source: Patient Mode of Arrival: Wheelchair Timing: Days Duration: Since onset Quality: Cramping, Sharp Vomitus: Watery, Streaking Blood Stool: Normal Severity: Moderate Recent: None Recent Hx of: Diabetes Pain Location: LLQ Modifying Factors: Nothing Associated sign and symptoms: Nausea, Vomiting, Hematemesis, Abdominal Pain Past Medical History PAST MEDICAL HISTORY: DM, HTN Surgical History: Denies all surgeries CLINICAL OPERATIONS SPECIALIST History: Denies all CLINICAL OPERATIONS SPECIALIST Hx, Other Family History Family History: Reviewed,noncontributory to illness, Family hx of DM, Family hx of HTN Social History Smoker: Non-Smoker Alcohol: Rarely Drugs: Denies Drug Use Lives In: Home Constitutional: denies: chills, diaphoresis, fatigue, fever, malaise, sweats, weakness, others EENTM: denies: blurred vision, double vision, ear bleeding, ear discharge, ear drainage, ear pain, ear ringing, eye pain, eye redness, hearing loss, mouth pain, mouth swelling, nasal discharge, nose bleeding, nose congestion, nose pain, photophobia, tearing, throat pain, throat swelling, voice changes, others Respiratory: denies: cough, hemoptysis, orthopnea, SOB at rest, shortness of breath, SOB with excertion, stridor, wheezing, others Cardiovascular: denies: chest pain, dizzy spells, diaphoresis, Dyspnea on exertion, edema, irregular heart beat, left arm pain, lightheadedness, palpitations, PND, syncope, others Gastrointestinal: reports: abdominal pain, hematemesis, nausea, vomiting; denies: abdomen distended, blood streaked bowels, constipated, diarrhea, dysphagia, difficulty swallowing, melena, poor appetite, poor fluid intake, rectal bleeding, rectal pain, others Genitourinary: denies: abnormal vagina bleeding, burning, dyspareunia, dysuria, flank pain, frequency, hematuria, incontinence, pain, , vagina discharge, urgency, others Neurological: denies: dizziness, fainting, headache, left sided numbness, left sided weakness, numbness, paresthesia, pre-existing deficit, right sided numbness, right sided weakness, seizure, speech problems, tingling, tremors, weakness, others Musculoskeletal: denies: back pain, gout, joint pain, joint swelling, muscle pain, muscle stiffness, neck pain, others Integumetry: denies: bruises, change in color, change in hair/nails, dryness, laceration, lesions, lumps, rash, wounds, others Allergic/Immunocompromised: denies: Difficulty Healing, Frequent Infections, Hives, Itching, others Hematologic/Lymphatic: denies: anemia, blood clots, easy bleeding, easy bruising, swollen glands, others Endocrine: denies: excessive hunger, excessive sweating, excessive thirst, excessive urination, flushing, intolerance to cold, intolerance to heat, unexplained weight gain, unexplained weight loss, others Psychiatric: denies: anxiety, bipolar disorder, depression, hopeless, panic disorder, schizophrenia, sleepless, suicidal, others Physical Exam General Appearance: Mild Distress HEENT: Other (Pupils and face symmetric. Dry mucous membranes.) Neck: Full Range of Motion, Normal Inspection Respiratory: Lungs Clear, No Accessory Muscle Use, No Respiratory Distress, Normal Breath Sounds Cardiovascular: No Edema, No JVD, Regular Rate/Rhythm Breast Exam: Deferred Gastrointestinal: LLQ, Soft, Tenderness Genitalia: Deferred Pelvic: Deferred Rectal: Deferred Extremities: Normal inspection, Normal range of motion, Non-tender, No pedal edema Neurologic: Alert (Oriented x4), Normal Affect, Normal Mood, Other (Ambulatory) Cerebellar Function: NOT DONE Reflexes: NOT DONE Skin: Dry, Normal Color, Warm Lymphatic: NOT DONE Was a procedure done? Was a procedure done?: No GI differential Dx Differential Diagnosis: Diverticular disease, Esophagitis, Gastritis/PUD, Gastroenteritis, Inflammatory BD, Pancreatitis, UTI, Dehydration, Diabetes/ DKA, Electrolyte Imbalance, Food Poisoning, Bacterial, Viral, Hypovolemia, Esophageal Varicies, Stress Ulcer X-Ray, Labs, Meds, VS Vital Signs Date Time Temp Pulse Resp B/P (MAP) Pulse Ox O2 Delivery O2 Flow Rate FiO2 12/06/24 01:34 99.8 88 18 128/84 (99) 97 99.8 12/06/24 01:28 88 14 128/84 12/06/24 00:40 99.6 122 14 131/86 (101) 98 99.6 Lab Test 12/06/24 02:47 12/06/24 01:58 12/06/24 01:06 12/06/24 00:41 Range/Units POC Glucose 443 *H 405 *H 70-106 mg/dl Troponin I High Sensitivity 15 17 </=34 ng/L White Blood Count 5.6 4.4-10.8 10^3/uL Red Blood Count 4.34 4.0-5.20 10^6/uL Hemoglobin 12.3 12.2-16.2 g/dL Hematocrit 35.5 L 36.0-46.0 % Mean Corpuscular Volume 81.8 80.0-100.0 fL Mean Corpuscular Hemoglobin 28.5 28.0-32.0 pg Mean Corpuscular Hemoglobin Concent 34.8 32.0-36.0 g/dL Red Cell Distribution Width 12.9 11.8-14.3 % Platelet Count 265 140-450 10^3/uL Mean Platelet Volume 7.9 6.9-10.8 fL Neutrophils (%) (Auto) 78.2 37.0-80.0 % Lymphocytes (%) (Auto) 11.0 10.0-50.0 % Monocytes (%) (Auto) 10.3 0.0-12.0 % Eosinophils (%) (Auto) 0.0 0.0-7.0 % Basophils (%) (Auto) 0.5 0.0-2.0 % Neutrophils # (Auto) 4.4 1.6-8.6 10 ^3/uL Lymphocytes # (Auto) 0.6 0.4-5.4 10 ^3/uL Monocytes # (Auto) 0.6 0-1.3 10 ^3/uL Eosinophils # (Auto) 0 0-0.8 10 ^3/uL Basophils # (Auto) 0 0-0.2 10 ^3/uL Nucleated Red Blood Cells 0.1 % Prothrombin Time 11.3 9.3-11.8 sec Prothrombin Time INR 1.07 0.9-1.15 Activated Partial Thromboplast Time 29.6 24.5-34.5 SEC Sodium Level 128 #L 136-145 mmol/L Potassium Level 4.1 3.5-5.1 mmol/L Chloride Level 90 L 98-107 mmol/L Carbon Dioxide Level 27 20-31 mmol/L Anion Gap 11 5-15 Blood Urea Nitrogen 15 9-23 mg/dL Creatinine 1.18 #H 0.550-1.02 mg/dL Glomerular Filtration Rate Calc 62 >90 mL/min BUN/Creatinine Ratio 12.7 10.0-20.0 Serum Glucose 464 *H 74-106 mg/dL Calcium Level 8.5 L 8.7-10.4 mg/dL Total Bilirubin 0.3 0.2-1.0 mg/dL Aspartate Amino Transferase (AST) 11 <34 U/L Alanine Aminotransferase (ALT) 10 7-40 U/L Alkaline Phosphatase 74 46-116 U/L Total Protein 6.9 5.7-8.2 g/dL Albumin 3.8 3.2-4.8 g/dL Lipase 24 12-53 U/L Test 12/06/24 00:40 Range/Units Urine Color Light-yellow Yellow Urine Clarity Clear Clear Urine pH 6.0 5.0-9.0 Urine Specific Gower 1.024 1.001-1.035 Urine Protein 2+ H Negative Urine Ketones 2+ H Negative Urine Blood 2+ H Negative /uL Urine Nitrite Negative Negative Urine Bilirubin Negative Negative Urine Urobilinogen Normal Negative mg/dL Urine Leukocyte Esterase Negative Negative /uL Urine RBC 5 0 - 4 /hpf Urine Microscopic WBC 14 H 0-5 /HPF Urine Squamous Epithelial Cells None seen <5 /hpf Urine Bacteria None seen None Seen /hpf Urine Glucose 4+ H Normal mg/dL Urine Test Negative Negative Current Medications Medications (Trade) Dose Ordered Sig/Radha Route Start Time Stop Time Status Last Admin Sodium Chloride 1,000 ml @ 1,000 mls/hr Q1H ONCE IV 12/06/24 01:00 12/06/24 01:59 DC 12/06/24 01:44 Ondansetron HCl (Zofran) 4 mg ONCE ONCE IV 12/06/24 01:00 12/06/24 01:01 DC 12/06/24 01:28 Morphine Sulfate 4 mg ONCE ONCE IV 12/06/24 01:00 12/06/24 01:01 DC 12/06/24 01:28 Pantoprazole Sodium (Protonix) 40 mg ONCE ONCE IV 12/06/24 01:00 12/06/24 01:01 DC 12/06/24 01:28 Insulin Human Regular (InsuLIN R) 8 units ONCE ONCE IV 12/06/24 02:00 12/06/24 02:01 DC 12/06/24 02:00 PROCEDURE(s): ABPL - CT AB PEL WO CON-NO ORAL OR IV REASON: llq pain ORDER NUMBER(s): [id number], ACCESSION NUMBER(s): [id number] Examination: ABPL CLINICAL INDICATION: llq pain COMPARISON: None. CONTRAST USED: None. TECHNIQUE: A plain CT study of the abdomen and pelvis is performed. The examination was performed with 5 mm thin slices. Multiplanar reconstructions were obtained. CT scan done according to ALARA (As Low As Reasonably Achievable). FINDINGS: CT ABDOMEN: Lung Bases: The evaluation of lung bases demonstrates no focal infiltrates or pleural effusion. Mild pericardial effusion. Unenhanced Liver: The liver is normal in size. There is no intrahepatic biliary radicle dilatation. Gallbladder: The gallbladder is normal and reveals no intrinsic abnormality. The common bile duct is not dilated. Unenhanced Pancreas: The pancreas is normal in size and shape. No focal lesion is seen within. The peripancreatic fat-planes are normal. Spleen: The spleen is normal in size and does not show any focal abnormality. Retroperitoneum: Both adrenal glands are normal in size and morphology in this unenhanced CT scan. There is no significant retroperitoneal lymphadenopathy. The kidneys are normal in size with no hydronephrosis or renal calculi. Vessels: Aorta, IVC and the mesenteric vessels cannot be commented in this unenhanced CT scan. Stomach and Bowel: The bowel loops are unremarkable. There is no ascites. Skeletal System: Degenerative changes are noted in the thoracolumbar spine. CT PELVIS: Appendix: The appendix is unremarkable in appearance measuring 3 mm. Colon: The ascending, transverse, descending, sigmoid colon and rectum are unremarkable. Bladder: The urinary bladder is partially distended. Uterus and Ovaries: Uterus appears normal. No adnexal pathology. No pelvic lymphadenopathy is identified. Minimal free fluid is seen in the pouch of Yair. IMPRESSION: 1. No abdominal mass or adenopathy. 2. No ascites. 3. No free air or inflammatory changes. 4. Additional chronic and/or ancillary findings as detailed above. 5. Clinical correlation is suggested and follow-up as clinically deemed necessary. Electronically Signed 12/06/2024 03:41 Ravindra Guillen X-Ray, Labs, Meds, VS Comment 34-year-old female with a history of hypertension and diabetes complaining of nausea, vomiting, hematemesis and left lower quadrant pain Vitals remarkable for temperature 99.6, heart rate 122 Exam remarkable for left lower quadrant tenderness to palpation Rhythm strip independently interpreted by me: Sinus tach, rate 122, no ectopy. CT abdomen and pelvis IMPRESSION: 1. No abdominal mass or adenopathy. 2. No ascites. 3. No free air or inflammatory changes. 4. Additional chronic and/or ancillary findings as detailed above. 5. Clinical correlation is suggested and follow-up as clinically deemed n ecessary. CBC unremarkable, CMP remarkable for sodium 128, chloride 90, creatinine 1.18, glucose 464, lipase normal, UA pending Patient treated with the following in the ED: 1 L 0.9 normal saline IV bolus, Zofran 4 mg IV, morphine 4 mg IV, Protonix 40 mg IV, regular insulin 6 units IV On re-evaluation, patient states pain has improved. Vitals are stable. Case discussed with Dr. Perez at [facility], who will arrange for the patient to be transferred to [place]. Authorization [id number] Time of 1ST Reevaluation: 00:57 Reevaluation 1ST: Unchanged Patient Education/Counseling: Diagnosis, Treatment Family Education/Counseling: No Family Present SEPSIS Sepsis Screen Date sepsis recognized/suspect: Dec 06, 2024 Time Sepsis recognized/suspect: 0040 Recent Procedure: No On Antibiotic Therapy: No Respiratory Rate >20: No Heart Rate >90: Yes Temp<36 C (96.8 F) or >38.3 C: No SBP <90 or MAP <65 mmHG: No New Acute Mental Status Change: No Is the patient on CPAP, BIPAP,: No Physician Orders Ct Ab Pel Wo Con-No Oral Or Iv (12/06/24 00:51) Vital Signs Date Time Temp Pulse Resp B/P (MAP) Pulse Ox O2 Delivery O2 Flow Rate FiO2 12/06/24 01:34 99.8 88 18 128/84 (99) 97 99.8 12/06/24 01:28 88 14 128/84 12/06/24 00:40 99.6 122 14 131/86 (101) 98 99.6 Laboratory Tests Test 12/06/24 01:06 White Blood Count 5.6 10^3/uL (4.4-10.8) Medications Medications Dose Ordered Sig/Radha Route Start Time Stop Time Status Last Admin Dose Admin Insulin Human Regular 8 units ONCE ONCE IV 12/06/24 02:00 12/06/24 02:01 DC 12/06/24 02:00 Morphine Sulfate 4 mg ONCE ONCE IV 12/06/24 01:00 12/06/24 01:01 DC 12/06/24 01:28 Ondansetron HCl 4 mg ONCE ONCE IV 12/06/24 01:00 12/06/24 01:01 DC 12/06/24 01:28 Pantoprazole Sodium 40 mg ONCE ONCE IV 12/06/24 01:00 12/06/24 01:01 DC 12/06/24 01:28 Sodium Chloride 1,000 ml @ 1,000 mls/hr Q1H ONCE IV 12/06/24 01:00 12/06/24 01:59 DC 12/06/24 01:44 Departure 1 Departure Time of Disposition: 01:53 Impression: Primary Impression: Nausea and vomiting Additional Impressions: Hematemesis Electrolyte imbalance Acute kidney injury Hyperglycemia Disposition: 02 SHORT TERM HOSPITAL Admit to: Tele Condition: Guarded Critical Care Note Critical Care Time?: Yes (35 min-critical care time only) Critical care comment: Critical care time including multiple bedside re-evaluations, review of lab and imaging studies, and discussion of the case with the admitting provider. Patient is high risk for metabolic decompensation. Stability Stability form required: No Heart Score Heart Score: Heart Score Response (Comments) Value History N/A 0 EKG N/A 0 Age N/A 0 Risk Factors N/A 0 Troponin N/A 0 Total 0 I personally scribed for JOSE EDUARDO MONDRAGON MD ([email or web address]) on 12/06/24 at 01:01. Electronically submitted by Randy Reeves ([email or web address]). JOSE EDUARDO MONDRAGON MD Dec 06, 2024 01:01
[2024-12-06 01:18] LABS: Basophils # (auto) 0 10 ^3/uL (0-0.2); Basophils % (auto) 0.5 % (0.0-2.0); Eosinophils # (auto) 0 10 ^3/uL (0-0.8); Hematocrit 35.5 % (36.0-46.0); Hemoglobin 12.3 g/dL (12.2-16.2); Lymphocytes # (auto) 0.6 10 ^3/uL (0.4-5.4); Mean Corpuscular Hemoglobin 28.5 pg (28.0-32.0); Mean Corpuscular Hgb Conc. 34.8 g/dL (32.0-36.0); Mean Corpuscular Volume 81.8 fL (80.0-100.0); Monocytes # (auto) 0.6 10 ^3/uL (0-1.3); Monocytes % (auto) 10.3 % (0.0-12.0); Neutrophils # (auto) 4.4 10 ^3/uL (1.6-8.6); Neutrophils % (auto) 78.2 % (37.0-80.0); Nucleated Red Blood Cells % 0.1 %; Platelet Count (auto) 265 10^3/uL (140-450); Red Blood Cells 4.34 10^6/uL (4.0-5.20); Red Cell Distribution Width 12.9 % (11.8-14.3); White Blood Cell 5.6 10^3/uL (4.4-10.8)
[2024-12-06] MEDS: ONDANSETRON HCL 4 MG/2 ML VIAL IV ONE (01:28)
[2024-12-06] MEDS: MORPHINE SULFATE 4 MG/ML SYR/VIAL IV ONE (01:28)
[2024-12-06] MEDS: PANTOPRAZOLE 40 MG/10 ML VIAL INJ IV ONE (01:28)
[2024-12-06 01:34] LABS: Alanine Aminotransferase 10 U/L (7-40); Albumin 3.8 g/dL (3.2-4.8); Alkaline Phosphatase 74 U/L (46-116); Anion Gap 11 (5-15); Aspartate Aminotransferase 11 U/L (<34); BUN/Creatinine Ratio 12.7 (10.0-20.0); Blood Urea Nitrogen 15 mg/dL (9-23); Carbon Dioxide 27 mmol/L (20-31); INR 1.07 (0.9-1.15); Lipase 24 U/L (12-53); Partial Thromboplastin Time 29.6 SEC (24.5-34.5); Potassium 4.1 mmol/L (3.5-5.1); Prothrombin Time 11.3 sec (9.3-11.8); Total Protein 6.9 g/dL (5.7-8.2)
[2024-12-06 01:35] LABS: Bilirubin, Total 0.3 mg/dL (0.2-1.0)
[2024-12-06 01:36] LABS: Calcium 8.5 mg/dL (8.7-10.4); Chloride 90 mmol/L (98-107); Sodium 128 mmol/L (136-145)
[2024-12-06 01:38] LABS: Glucose 464 mg/dL (74-106)
[2024-12-06] MEDS: SODIUM CHLORIDE 0.9% 1,000 ML IV ONE (01:44)
[2024-12-06] MEDS: InsuLIN REG 1unit/0.01ml Soln (100units/ml) IV ONE (02:00)
[2024-12-06 02:16] LABS: Urine Bacteria None Seen /hpf (None Seen)
[2024-12-06 02:35] LABS: Urine Blood 2+ /uL (Negative); Urine Clarity Clear (Clear); Urine Color Light-Yellow (Yellow); Urine Protein, UAD 2+ (Negative); Urine Specific Gravity 1.024 (1.001-1.035); Urine Squamous Epithelial Cell None Seen /hpf (<5); Urine Urobilinogen Normal (Negative); Urine WBC 14 /HPF (0-5)
--- NOTE | 2024-12-06 03:43 | DVH ---
Examination: ABPL CLINICAL INDICATION: llq pain COMPARISON: None. CONTRAST USED: None. TECHNIQUE: A plain CT study of the abdomen and pelvis is performed. The exam ination was performed with 5 mm thin slices. Multiplanar reconstructions were obtained. CT scan done according to ALARA (As Low As Reasonably Achievable). FINDINGS: CT ABDOMEN: Lung Bases: The evaluation of lung bases demonstrates no focal infiltrates or pleural effusion. Mild pericardial effusion. Unenhanced Liver: The liver is normal in size. There is no intrahepatic biliary radicle dilatation. Gallbladder: The gallbladder is normal and reveals no intrinsic abnormality. The common bile duct i s not dilated. Unenhanced Pancreas: The pancreas is normal in size and shape. No focal lesion is seen within. The peripancreatic fat-planes are normal. Spleen: The spleen is normal in size and does not show any focal abnormality. Retroperitoneum: Both adrenal glands are normal in size and morphology in this unenhanced CT scan. There is no significant retroperitoneal lymphadenopathy. The kidneys are normal in size with no hydr onephrosis or renal calculi. Vessels: Aorta, IVC and the mesenteric vessels cannot be commented in this unenhanced CT scan. Stomach and Bowel: The bowel loops are unremarkable. There is no ascites. Skeletal System: Degenerative changes are noted in the thoracolumbar spine. CT PELVIS: Appendix: The appendix is unremarkable in appearance measuring 3 mm. Colon: The ascending, transverse, descending, sigmoid colon and rectum are unremarkable. Bladder: The urinary bladder is partially distended. Uterus and Ovaries: Uterus appears normal. No adnexal pathology. No pelvic lymphadenopathy is identified. Minimal free fluid is seen in the pouch of Yair. IMPRESSION: 1. No abdominal mass or adenopathy. 2. No ascites. 3. No free air or inflammatory changes. 4. Additional chronic and/or ancillary findings as detailed above. 5. Clinical correlation is suggested and follow-up as clinically deemed necessary. Electronically Signed 12/06/2024 03:41 Ravindra Guillen
[2024-12-06 04:39] VITALS: PULSE 88; RESP 15; O2SAT 95
[2024-12-06 08:00] VITALS: BP 160/107; PULSE 112; RESP 21; TEMP 98.4; O2SAT 98
== END 2024-12-06 04:04 | disposition short-term general hospital (02) ==
LOC: ER 00:25
DX: K92.0 Hematemesis (principal); N17.9 Acute kidney failure, unspecified; E11.65 Type 2 diabetes mellitus with hyperglycemia; I10 Essential (primary) hypertension; Z88.8 Allergy status to other drugs, medicaments and biological substances; Z79.899 Other long term (current) drug therapy
CPT/HCPCS: 36415; 74176; 80053; 81001; 81025; 82947; 83690; 84484; 85025; 85610; 85730; 96361; 96374; 96375; 99285; J1815; J2270; J2405; J2470; J7030; 82962